=== PATIENT | female | born 1955 | race African-American/Black ===

== ENCOUNTER 2019-07-06 11:45 | Inpatient (IN) | payer MEDICAID ==
[~2019-07-06] VITALS: Ht 165.1 cm; Wt 71.2 kg
[~2019-07-06 11:45] MED LIST: ACET-3207 PO; AMLO10TA7 PO; ATOR20TA86 PO; BISA10SU11 PR; DSSL PO; INSULIN SQ; ONDA4VIA22 IV; PANT40VI14 IVP
[2019-07-06 12:37] VITALS: BP 163/95
[2019-07-06] MEDS ORDERED: ACETAMINOPHEN 325 MG TABLET PO PRN (14:00)
[2019-07-06] MEDS ORDERED: MELATONIN 3 MG TABLET PO PRN (14:00)
[2019-07-06] MEDS ORDERED: PNEUMOCOCCAL VACCINE POLYVALENT 0.5 ML VIAL [PPSV23] IM ONE (14:30)
[2019-07-06 14:47] LABS: BASOPHILS % (AUTO) 0.8 % (0.0-2.0); EOSINOPHILS % (AUTO) 1.4 % (1.0-6.0); HEMATOCRIT 34.9 % (36-46); HEMOGLOBIN 11.8 g/dL (12.0-16.0); LYMPHOCYTES # (AUTO) 1.6 K/uL (1.0-4.8); LYMPHOCYTES % (AUTO) 21.6 % (22.0-44.0); MEAN CORPUSCULAR HEMOGLOBIN 31.8 pg (26.0-34.0); MEAN CORPUSCULAR HGB CONC 33.9 G/dL (31.0-37.0); MEAN CORPUSCULAR VOLUME 94 fL (80-100); MONOCYTES # (AUTO) 0.8 K/uL (0.1-1.0); MONOCYTES % (AUTO) 10.8 % (2.0-9.0); NEUTROPHILS # (AUTO) 4.7 K/uL (1.8-7.7); NEUTROPHILS % (AUTO) 65.4 % (40.0-70.0); PLATELET COUNT (AUTO) 252 K/uL (150-450); RED BLOOD CELL COUNT(AUTO) 3.73 MIL/uL (4.00-5.20); RED CELL DISTRIBUTION WIDTH 13.7 % (11.5-14.5)
[2019-07-06 15:04] LABS: ALBUMIN 2.5 g/dL (3.4-5.0); BILIRUBIN,TOTAL 0.4 mg/dL (0.1-1.0); CALCIUM, TOTAL 8.8 mg/dL (8.8-10.5); CREATININE 1.12 mg/dL (0.60-1.30); POTASSIUM 3.9 mmol/L (3.5-5.1); TOTAL PROTEIN, SERUM 6.7 g/dL (6.4-8.2)
[2019-07-06] MEDS ORDERED: DEXTROSE 50%-WATER 25 GM/50 ML SYRINGE IVP PRN (15:30)
[2019-07-06 16:28] VITALS: BP 156/92
[2019-07-06] MEDS: DOCUSATE SODIUM 100 MG CAPSULE PO SCH ×2 (16:50→21:18)
[2019-07-06] MEDS: BISACODYL 10 MG RECTAL RECTAL SUPPOSITORY PR PRN (17:01)
[2019-07-06] MEDS ORDERED: SENNA 187 MG TABLET PO SCH (21:00)
[2019-07-06] MEDS ORDERED: DOCUSATE SODIUM 100 MG CAPSULE PO SCH (21:00)
[2019-07-06] MEDS: ATORVASTATIN CALCIUM 20 MG TABLET PO SCH (21:18)
[2019-07-06] MEDS: SENNA 187 MG TABLET PO SCH (21:18)
[2019-07-06] MEDS: INSULIN LISPRO 100 UNITS/ML SQ PRN (21:26)
[2019-07-06 22:37] LABS: GLUCOMETER DEV NAME(LOC) 2WR.2; GLUCOSE,POINT OF CARE 174 MG/DL (70-110)
[2019-07-06 23:27] VITALS: BP 153/90
[2019-07-07] VITALS (7 sets, daily range): BP systolic 158–188; BP diastolic 86–104
[2019-07-07 05:55] LABS: GLUCOMETER DEV NAME(LOC) 2WR.1C; GLUCOSE,POINT OF CARE 142 MG/DL (70-110)
[2019-07-07] MEDS ORDERED: PANTOPRAZOLE SODIUM 40 MG DR TABLET PO SCH (07:00)
[2019-07-07 07:30] LABS: APPEARANCE,URINE CLOUDY (CLEAR); BILIRUBIN,URINE NEGATIVE (NEGATIVE); GLUCOSE, URINE (UA) NEGATIVE (NEGATIVE); KETONES,URINE TRACE mg/dL (NEGATIVE); LEUKOCYTE ESTERASE ,URINE SMALL (NEGATIVE); NITRATE,URINE NEGATIVE (NEGATIVE); OCCULT BLOOD,URINE TRACE (NEGATIVE); PH,URINE 5.5 (5.0-8.0); PROTEIN,URINE SEE CONFIRM (NEGATIVE); UROBILINOGEN,URINE 0.2 mg/dL (<=1.0)
[2019-07-07] MEDS: INSULIN LISPRO 100 UNITS/ML SQ PRN ×4 (07:43→21:28)
[2019-07-07] MEDS: AmLODIPine BESYLATE 10 MG TABLET PO SCH (07:44)
[2019-07-07] MEDS: LANSOPRAZOLE 30 MG SOLUBLE TABLET PO SCH (07:44)
[2019-07-07] MEDS: DOCUSATE SODIUM 100 MG CAPSULE PO SCH ×2 (07:44→21:23)
[2019-07-07 07:45] LABS: BACTERIA,URINE Many /HPF (None Seen); RBC,URINE 0-2 /HPF (0-2); SULFOSALICYLIC ACID,URINE 3+ (Negative)
[2019-07-07] MEDS: NITROFURANTOIN/NITROFURAN MAC 100 MG CAPSULE [MACROBID] PO SCH ×2 (12:49→21:23)
[2019-07-07] MEDS: NYSTATIN 500,000 UNITS/5 ML SUSPENSION UDCUP PO SCH ×3 (12:49→21:23)
[2019-07-07 13:35] LABS: GLUCOMETER DEV NAME(LOC) 2WR.2; GLUCOSE,POINT OF CARE 188 MG/DL (70-110)
[2019-07-07 15:36] LABS: GLUCOMETER DEV NAME(LOC) 2WR.1C; GLUCOSE,POINT OF CARE 149 MG/DL (70-110)
[2019-07-07] MEDS: HydrALAZINE HCL 50 MG TABLET PO PRN ×2 (16:45→23:45)
[2019-07-07] MEDS: MetFORMIN HCL 500 MG TABLET PO SCH (16:46)
[2019-07-07 17:44] LABS: GLUCOMETER DEV NAME(LOC) 2WR.2; GLUCOSE,POINT OF CARE 152 MG/DL (70-110)
[2019-07-07] MEDS: BISACODYL 10 MG RECTAL RECTAL SUPPOSITORY PR PRN (18:27)
[2019-07-07] MEDS: ATORVASTATIN CALCIUM 20 MG TABLET PO SCH (21:23)
[2019-07-07] MEDS: SENNA 187 MG TABLET PO SCH (21:24)
[2019-07-07 22:54] LABS: GLUCOMETER DEV NAME(LOC) 2WR.2; GLUCOSE,POINT OF CARE 174 MG/DL (70-110)
[2019-07-08 01:24] VITALS: BP 157/88
[2019-07-08 06:17] LABS: GLUCOMETER DEV NAME(LOC) 2WR.2; GLUCOSE,POINT OF CARE 203 MG/DL (70-110)
[2019-07-08] MEDS: DOCUSATE SODIUM 100 MG CAPSULE PO SCH ×2 (07:18→21:08)
[2019-07-08] MEDS: AmLODIPine BESYLATE 10 MG TABLET PO SCH (07:18)
[2019-07-08] MEDS: MetFORMIN HCL 500 MG TABLET PO SCH ×2 (07:18→17:13)
[2019-07-08 07:20] VITALS: BP 183/97
[2019-07-08] MEDS: HydrALAZINE HCL 50 MG TABLET PO PRN (07:21)
[2019-07-08] MEDS: NITROFURANTOIN/NITROFURAN MAC 100 MG CAPSULE [MACROBID] PO SCH ×2 (07:21→21:07)
[2019-07-08] MEDS: NYSTATIN 500,000 UNITS/5 ML SUSPENSION UDCUP PO SCH ×4 (07:21→21:07)
[2019-07-08] MEDS: LANSOPRAZOLE 30 MG SOLUBLE TABLET PO SCH (07:22)
[2019-07-08] MEDS: INSULIN LISPRO 100 UNITS/ML SQ PRN ×4 (07:42→21:21)
[2019-07-08 08:30] VITALS: BP 184/95
[2019-07-08 09:20] VITALS: BP 156/90
[2019-07-08 15:00] VITALS: BP 158/93
[2019-07-08] MEDS: ACETAMINOPHEN 325 MG TABLET PO PRN (15:05)
[2019-07-08 15:22] LABS: GLUCOMETER DEV NAME(LOC) 2WR.2; GLUCOSE,POINT OF CARE 235 MG/DL (70-110)
[2019-07-08 17:40] LABS: GLUCOMETER DEV NAME(LOC) 2WR.2; GLUCOSE,POINT OF CARE 144 MG/DL (70-110)
[2019-07-08] MEDS: BISACODYL 10 MG RECTAL RECTAL SUPPOSITORY PR PRN (21:04)
[2019-07-08] MEDS: HydrALAZINE HCL 50 MG TABLET PO SCH (21:06)
[2019-07-08] MEDS: ATORVASTATIN CALCIUM 20 MG TABLET PO SCH (21:06)
[2019-07-08] MEDS: SENNA 187 MG TABLET PO SCH (21:06)
[2019-07-08 21:30] VITALS: BP 136/82
[2019-07-08 23:25] LABS: GLUCOMETER DEV NAME(LOC) 2WR.2; GLUCOSE,POINT OF CARE 143 MG/DL (70-110)
[2019-07-08 23:54] LABS: EOSINOPHILS % (AUTO) 2.4 % (1.0-6.0); HEMOGLOBIN 13.7 g/dL (12.0-16.0); LYMPHOCYTES # (AUTO) 1.4 K/uL (1.0-4.8); LYMPHOCYTES % (AUTO) 23.5 % (22.0-44.0); MEAN CORPUSCULAR HEMOGLOBIN 31.7 pg (26.0-34.0); MEAN CORPUSCULAR HGB CONC 34.1 G/dL (31.0-37.0); MEAN CORPUSCULAR VOLUME 93 fL (80-100); MONOCYTES # (AUTO) 1.1 K/uL (0.1-1.0); MONOCYTES % (AUTO) 18.2 % (2.0-9.0); NEUTROPHILS # (AUTO) 3.3 K/uL (1.8-7.7); NEUTROPHILS % (AUTO) 54.9 % (40.0-70.0); PLATELET COUNT (AUTO) 280 K/uL (150-450); RED BLOOD CELL COUNT(AUTO) 4.32 MIL/uL (4.00-5.20); RED CELL DISTRIBUTION WIDTH 13.6 % (11.5-14.5)
[2019-07-09] VITALS (9 sets, daily range): BP systolic 149–187; BP diastolic 80–125
[2019-07-09 00:01] LABS: CALCIUM, TOTAL 9.8 mg/dL (8.8-10.5); CREATININE 1.11 mg/dL (0.60-1.30); POTASSIUM 3.3 mmol/L (3.5-5.1)
[2019-07-09] MEDS: CloNIDine HCL 0.1 MG TABLET PO PRN ×2 (00:48→07:29)
[2019-07-09 05:45] LABS: GLUCOMETER DEV NAME(LOC) 2WR.1C; GLUCOSE,POINT OF CARE 162 MG/DL (70-110)
[2019-07-09 06:00] LABS: GLUCOMETER DEV NAME(LOC) 2WR.1C; GLUCOSE,POINT OF CARE 175 MG/DL (70-110)
[2019-07-09] MEDS: AmLODIPine BESYLATE 10 MG TABLET PO SCH (07:29)
[2019-07-09] MEDS: HydrALAZINE HCL 50 MG TABLET PO SCH ×3 (07:29→21:13)
[2019-07-09] MEDS: MetFORMIN HCL 500 MG TABLET PO SCH ×2 (07:29→18:02)
[2019-07-09] MEDS: DOCUSATE SODIUM 100 MG CAPSULE PO SCH ×2 (07:30→21:13)
[2019-07-09] MEDS: NYSTATIN 500,000 UNITS/5 ML SUSPENSION UDCUP PO SCH ×4 (07:30→21:13)
[2019-07-09] MEDS: NITROFURANTOIN/NITROFURAN MAC 100 MG CAPSULE [MACROBID] PO SCH (07:30)
[2019-07-09] MEDS: INSULIN LISPRO 100 UNITS/ML SQ PRN ×4 (07:39→21:18)
[2019-07-09] MEDS: LANSOPRAZOLE 30 MG SOLUBLE TABLET PO SCH (07:48)
[2019-07-09] MEDS: ACETAMINOPHEN 325 MG TABLET PO PRN (09:26)
[2019-07-09] MEDS ORDERED: POTASSIUM CHLORIDE 10% 40 MEQ/30 ML LIQUID UDCUP PO ONE (10:00)
[2019-07-09] MEDS: POTASSIUM CHLORIDE 20 MEQ ER TABLET PO SCH (12:48)
[2019-07-09 13:19] LABS: GLUCOMETER DEV NAME(LOC) 2WR.2; GLUCOSE,POINT OF CARE 227 MG/DL (70-110)
[2019-07-09] MEDS: AMPICILLIN TRIHYDRATE 500 MG CAPSULE PO SCH ×2 (15:38→21:13)
[2019-07-09] MEDS ORDERED: TAMSULOSIN HCL 0.4 MG CAPSULE PO SCH (21:00)
[2019-07-09 21:09] LABS: GLUCOMETER DEV NAME(LOC) 2WR.1C; GLUCOSE,POINT OF CARE 171 MG/DL (70-110)
[2019-07-09] MEDS: SENNA 187 MG TABLET PO SCH (21:14)
[2019-07-09] MEDS: ATORVASTATIN CALCIUM 20 MG TABLET PO SCH (21:14)
[2019-07-10 05:27] LABS: GLUCOMETER DEV NAME(LOC) 2WR.1C; GLUCOSE,POINT OF CARE 151 MG/DL (70-110)
[2019-07-10 05:42] LABS: GLUCOMETER DEV NAME(LOC) 2WR.2; GLUCOSE,POINT OF CARE 197 MG/DL (70-110)
[2019-07-10 07:19] VITALS: BP 156/95
[2019-07-10] MEDS: AmLODIPine BESYLATE 10 MG TABLET PO SCH (08:07)
[2019-07-10] MEDS: DOCUSATE SODIUM 100 MG CAPSULE PO SCH ×2 (08:07→21:05)
[2019-07-10] MEDS: MetFORMIN HCL 500 MG TABLET PO SCH ×2 (08:07→17:52)
[2019-07-10] MEDS: POTASSIUM CHLORIDE 20 MEQ ER TABLET PO SCH (08:07)
[2019-07-10] MEDS: HydrALAZINE HCL 50 MG TABLET PO SCH ×3 (08:08→21:05)
[2019-07-10] MEDS: NYSTATIN 500,000 UNITS/5 ML SUSPENSION UDCUP PO SCH ×4 (08:08→21:05)
[2019-07-10] MEDS: AMPICILLIN TRIHYDRATE 500 MG CAPSULE PO SCH ×3 (08:08→21:05)
[2019-07-10] MEDS: LANSOPRAZOLE 30 MG SOLUBLE TABLET PO SCH (08:09)
[2019-07-10] MEDS: ACETAMINOPHEN 325 MG TABLET PO PRN ×2 (08:35→13:45)
[2019-07-10] MEDS: INSULIN LISPRO 100 UNITS/ML SQ PRN ×4 (08:38→21:12)
[2019-07-10 10:20] VITALS: BP 149/93
[2019-07-10] MEDS: SERTRALINE HCL 50 MG TABLET PO SCH (13:40)
[2019-07-10 13:45] VITALS: BP 176/95
[2019-07-10] MEDS: CloNIDine HCL 0.1 MG TABLET PO PRN (13:45)
[2019-07-10 13:46] LABS: GLUCOMETER DEV NAME(LOC) 2WR.1C; GLUCOSE,POINT OF CARE 216 MG/DL (70-110)
[2019-07-10 15:00] VITALS: BP 157/98
[2019-07-10 18:18] LABS: GLUCOMETER DEV NAME(LOC) 2WR.2; GLUCOSE,POINT OF CARE 199 MG/DL (70-110)
[2019-07-10] MEDS: BISACODYL 10 MG RECTAL RECTAL SUPPOSITORY PR PRN (18:42)
[2019-07-10] MEDS: SENNA 187 MG TABLET PO SCH (21:05)
[2019-07-10] MEDS: ATORVASTATIN CALCIUM 20 MG TABLET PO SCH (21:05)
[2019-07-10] MEDS: TAMSULOSIN HCL 0.4 MG CAPSULE PO SCH (21:05)
[2019-07-10 21:15] VITALS: BP 152/91
[2019-07-10 21:37] LABS: GLUCOMETER DEV NAME(LOC) 2WR.1C; GLUCOSE,POINT OF CARE 194 MG/DL (70-110)
[2019-07-10 23:07] VITALS: BP 138/85
[2019-07-11 06:13] LABS: GLUCOMETER DEV NAME(LOC) 2WR.2; GLUCOSE,POINT OF CARE 198 MG/DL (70-110)
[2019-07-11 06:44] LABS: CALCIUM, TOTAL 9.3 mg/dL (8.8-10.5); CREATININE 1.26 mg/dL (0.60-1.30)
[2019-07-11 07:30] VITALS: BP 160/93
[2019-07-11] MEDS: MetFORMIN HCL 500 MG TABLET PO SCH ×2 (07:59→17:05)
[2019-07-11] MEDS: AmLODIPine BESYLATE 10 MG TABLET PO SCH (07:59)
[2019-07-11] MEDS: LANSOPRAZOLE 30 MG SOLUBLE TABLET PO SCH (07:59)
[2019-07-11] MEDS: AMPICILLIN TRIHYDRATE 500 MG CAPSULE PO SCH ×3 (07:59→20:58)
[2019-07-11] MEDS: NYSTATIN 500,000 UNITS/5 ML SUSPENSION UDCUP PO SCH ×4 (07:59→20:58)
[2019-07-11] MEDS: SERTRALINE HCL 50 MG TABLET PO SCH (07:59)
[2019-07-11] MEDS: DOCUSATE SODIUM 100 MG CAPSULE PO SCH (08:00)
[2019-07-11] MEDS: POTASSIUM CHLORIDE 20 MEQ ER TABLET PO SCH (08:00)
[2019-07-11] MEDS: HydrALAZINE HCL 50 MG TABLET PO SCH ×3 (08:00→20:58)
[2019-07-11] MEDS: INSULIN LISPRO 100 UNITS/ML SQ PRN ×4 (08:22→21:03)
[2019-07-11] MEDS ORDERED: POTASSIUM CHL 20 MEQ/0.9% NS 1,000 ML IV ONE ×2 (10:00)
[2019-07-11] MEDS: METOPROLOL TARTRATE 25 MG TABLET PO SCH ×2 (12:36→20:58)
[2019-07-11 12:59] LABS: GLUCOMETER DEV NAME(LOC) 2WR.2; GLUCOSE,POINT OF CARE 241 MG/DL (70-110)
[2019-07-11] MEDS: SODIUM CHLORIDE 0.9% 1,000 ML IV SCH (13:27)
[2019-07-11 15:30] VITALS: BP 147/78
[2019-07-11] MEDS: TAMSULOSIN HCL 0.4 MG CAPSULE PO SCH (20:58)
[2019-07-11] MEDS: DOCUSATE SODIUM 250 MG CAPSULE PO SCH (20:58)
[2019-07-11] MEDS: SENNA 187 MG TABLET PO SCH (20:59)
[2019-07-11] MEDS: ATORVASTATIN CALCIUM 20 MG TABLET PO SCH (20:59)
[2019-07-11] MEDS ORDERED: INSULIN GLARGINE,HUM.REC.ANLOG 100 UNITS/ML SQ SCH (21:00)
[2019-07-11 23:30] VITALS: BP 158/89
[2019-07-12] MEDS: SODIUM CHLORIDE 0.9% 1,000 ML IV SCH (01:16)
[2019-07-12 05:59] LABS: GLUCOMETER DEV NAME(LOC) 2WR.1C; GLUCOSE,POINT OF CARE 161 MG/DL (70-110)
[2019-07-12 05:59] LABS: GLUCOMETER DEV NAME(LOC) 2WR.1C; GLUCOSE,POINT OF CARE 160 MG/DL (70-110)
[2019-07-12 06:20] LABS: GLUCOMETER DEV NAME(LOC) 2WR.2; GLUCOSE,POINT OF CARE 184 MG/DL (70-110)
[2019-07-12] MEDS: INSULIN LISPRO 100 UNITS/ML SQ PRN ×3 (08:27→17:57)
[2019-07-12] MEDS: AMPICILLIN TRIHYDRATE 500 MG CAPSULE PO SCH ×3 (08:31→20:48)
[2019-07-12] MEDS: NYSTATIN 500,000 UNITS/5 ML SUSPENSION UDCUP PO SCH ×4 (08:32→20:47)
[2019-07-12] MEDS: HydrALAZINE HCL 50 MG TABLET PO SCH ×3 (08:32→20:47)
[2019-07-12] MEDS: POTASSIUM CHLORIDE 20 MEQ ER TABLET PO SCH (08:32)
[2019-07-12] MEDS: LANSOPRAZOLE 30 MG SOLUBLE TABLET PO SCH (08:32)
[2019-07-12] MEDS: METOPROLOL TARTRATE 25 MG TABLET PO SCH (08:32)
[2019-07-12] MEDS: SERTRALINE HCL 50 MG TABLET PO SCH (08:32)
[2019-07-12] MEDS: AmLODIPine BESYLATE 10 MG TABLET PO SCH (08:33)
[2019-07-12] MEDS: DOCUSATE SODIUM 250 MG CAPSULE PO SCH ×2 (08:33→20:47)
[2019-07-12] MEDS: MetFORMIN HCL 500 MG TABLET PO SCH ×2 (08:34→17:13)
[2019-07-12] MEDS: LIDOCAINE 5% TRANSDERMAL PATCH TD SCH (09:00)
[2019-07-12] MEDS: ACETAMINOPHEN 325 MG TABLET PO PRN (10:06)
[2019-07-12] MEDS: FLUCONAZOLE 100 MG TABLET PO SCH (13:16)
[2019-07-12] MEDS: BETHANECHOL CHLORIDE 25 MG TABLET PO SCH ×2 (13:16→20:48)
[2019-07-12 15:15] VITALS: BP 144/90
[2019-07-12 16:44] LABS: GLUCOMETER DEV NAME(LOC) 2WR.1C; GLUCOSE,POINT OF CARE 195 MG/DL (70-110)
[2019-07-12 17:49] LABS: GLUCOMETER DEV NAME(LOC) 2WR.2; GLUCOSE,POINT OF CARE 146 MG/DL (70-110)
[2019-07-12] MEDS: METOPROLOL TARTRATE 50 MG TABLET PO SCH (20:47)
[2019-07-12] MEDS: TAMSULOSIN HCL 0.4 MG CAPSULE PO SCH (20:47)
[2019-07-12] MEDS: SENNA 187 MG TABLET PO SCH (20:48)
[2019-07-12] MEDS: ATORVASTATIN CALCIUM 20 MG TABLET PO SCH (20:48)
[2019-07-12] MEDS: -LIDODERM PATCH NOTE- MISC SCH (21:00)
[2019-07-12] MEDS: INSULIN GLARGINE,HUM.REC.ANLOG 100 UNITS/ML SQ SCH (21:01)
[2019-07-12 21:42] LABS: GLUCOMETER DEV NAME(LOC) 2WR.1C; GLUCOSE,POINT OF CARE 121 MG/DL (70-110)
[2019-07-12 23:15] VITALS: BP 137/90
[2019-07-13] MEDS: DOCUSATE SODIUM 283 MG/5 ML MINI-ENEMA PR SCH (06:00)
[2019-07-13 06:28] LABS: GLUCOMETER DEV NAME(LOC) 2WR.2; GLUCOSE,POINT OF CARE 166 MG/DL (70-110)
[2019-07-13] MEDS: LIDOCAINE 5% TRANSDERMAL PATCH TD SCH (07:56)
[2019-07-13] MEDS: HydrALAZINE HCL 50 MG TABLET PO SCH ×3 (07:56→20:57)
[2019-07-13] MEDS: BETHANECHOL CHLORIDE 25 MG TABLET PO SCH ×2 (07:56→20:57)
[2019-07-13] MEDS: FLUCONAZOLE 100 MG TABLET PO SCH (07:56)
[2019-07-13] MEDS: LANSOPRAZOLE 30 MG SOLUBLE TABLET PO SCH (07:56)
[2019-07-13] MEDS: NYSTATIN 500,000 UNITS/5 ML SUSPENSION UDCUP PO SCH ×4 (07:56→20:58)
[2019-07-13] MEDS: POTASSIUM CHLORIDE 20 MEQ ER TABLET PO SCH (07:57)
[2019-07-13] MEDS: METOPROLOL TARTRATE 50 MG TABLET PO SCH ×2 (07:57→20:58)
[2019-07-13] MEDS: SERTRALINE HCL 50 MG TABLET PO SCH (07:57)
[2019-07-13] MEDS: AmLODIPine BESYLATE 10 MG TABLET PO SCH (07:57)
[2019-07-13] MEDS: MetFORMIN HCL 500 MG TABLET PO SCH ×2 (07:57→17:23)
[2019-07-13] MEDS: DOCUSATE SODIUM 250 MG CAPSULE PO SCH ×2 (07:57→20:58)
[2019-07-13] MEDS: AMPICILLIN TRIHYDRATE 500 MG CAPSULE PO SCH ×3 (07:58→20:58)
[2019-07-13] MEDS: INSULIN LISPRO 100 UNITS/ML SQ PRN ×2 (08:01→13:31)
[2019-07-13 09:37] VITALS: BP 159/97
[2019-07-13 13:18] LABS: GLUCOMETER DEV NAME(LOC) 2WR.2; GLUCOSE,POINT OF CARE 190 MG/DL (70-110)
[2019-07-13 16:00] VITALS: BP 145/92
[2019-07-13 16:43] VITALS: BP 148/88
[2019-07-13 20:56] VITALS: BP 135/73
[2019-07-13] MEDS: SENNA 187 MG TABLET PO SCH (20:57)
[2019-07-13] MEDS: TAMSULOSIN HCL 0.4 MG CAPSULE PO SCH (20:57)
[2019-07-13] MEDS: ATORVASTATIN CALCIUM 20 MG TABLET PO SCH (20:58)
[2019-07-13] MEDS: INSULIN GLARGINE,HUM.REC.ANLOG 100 UNITS/ML SQ SCH (21:01)
[2019-07-13] MEDS: -LIDODERM PATCH NOTE- MISC SCH (21:16)
[2019-07-13 21:30] LABS: GLUCOMETER DEV NAME(LOC) 2WR.1C; GLUCOSE,POINT OF CARE 154 MG/DL (70-110)
[2019-07-13 21:31] LABS: GLUCOMETER DEV NAME(LOC) 2WR.1C; GLUCOSE,POINT OF CARE 123 MG/DL (70-110)
[2019-07-14 01:32] VITALS: BP 133/73
[2019-07-14] MEDS: DOCUSATE SODIUM 283 MG/5 ML MINI-ENEMA PR SCH (05:53)
[2019-07-14 06:19] LABS: GLUCOMETER DEV NAME(LOC) 2WR.1C; GLUCOSE,POINT OF CARE 147 MG/DL (70-110)
[2019-07-14 07:30] VITALS: BP 142/76
[2019-07-14] MEDS: DOCUSATE SODIUM 250 MG CAPSULE PO SCH ×2 (08:14→21:37)
[2019-07-14] MEDS: POTASSIUM CHLORIDE 20 MEQ ER TABLET PO SCH (08:14)
[2019-07-14] MEDS: METOPROLOL TARTRATE 50 MG TABLET PO SCH ×2 (08:14→21:35)
[2019-07-14] MEDS: LIDOCAINE 5% TRANSDERMAL PATCH TD SCH (08:14)
[2019-07-14] MEDS: AMPICILLIN TRIHYDRATE 500 MG CAPSULE PO SCH ×3 (08:14→21:36)
[2019-07-14] MEDS: HydrALAZINE HCL 50 MG TABLET PO SCH ×3 (08:15→21:36)
[2019-07-14] MEDS: NYSTATIN 500,000 UNITS/5 ML SUSPENSION UDCUP PO SCH ×4 (08:15→21:36)
[2019-07-14] MEDS: SERTRALINE HCL 50 MG TABLET PO SCH (08:15)
[2019-07-14] MEDS: AmLODIPine BESYLATE 10 MG TABLET PO SCH (08:15)
[2019-07-14] MEDS: FLUCONAZOLE 100 MG TABLET PO SCH (08:15)
[2019-07-14] MEDS: BETHANECHOL CHLORIDE 25 MG TABLET PO SCH ×2 (08:15→21:36)
[2019-07-14] MEDS: MetFORMIN HCL 500 MG TABLET PO SCH ×2 (08:15→17:07)
[2019-07-14] MEDS: LANSOPRAZOLE 30 MG SOLUBLE TABLET PO SCH (08:15)
[2019-07-14] MEDS: INSULIN LISPRO 100 UNITS/ML SQ PRN ×2 (08:35→13:15)
[2019-07-14 12:47] LABS: GLUCOMETER DEV NAME(LOC) 2WR.2; GLUCOSE,POINT OF CARE 157 MG/DL (70-110)
[2019-07-14 15:00] VITALS: BP 144/76
[2019-07-14 21:00] VITALS: BP 144/73
[2019-07-14 21:34] LABS: GLUCOMETER DEV NAME(LOC) 2WR.1C; GLUCOSE,POINT OF CARE 125 MG/DL (70-110)
[2019-07-14] MEDS: -LIDODERM PATCH NOTE- MISC SCH (21:34)
[2019-07-14] MEDS: TAMSULOSIN HCL 0.4 MG CAPSULE PO SCH (21:36)
[2019-07-14] MEDS: SENNA 187 MG TABLET PO SCH (21:37)
[2019-07-14] MEDS: ATORVASTATIN CALCIUM 20 MG TABLET PO SCH (21:37)
[2019-07-14] MEDS: INSULIN GLARGINE,HUM.REC.ANLOG 100 UNITS/ML SQ SCH (21:39)
[2019-07-14 23:18] VITALS: BP 136/82
[2019-07-15] MEDS: DOCUSATE SODIUM 283 MG/5 ML MINI-ENEMA PR SCH (05:25)
[2019-07-15 05:43] LABS: GLUCOMETER DEV NAME(LOC) 2WR.1C; GLUCOSE,POINT OF CARE 123 MG/DL (70-110)
[2019-07-15 05:50] LABS: GLUCOMETER DEV NAME(LOC) 2WR.2; GLUCOSE,POINT OF CARE 146 MG/DL (70-110)
[2019-07-15 07:14] LABS: CALCIUM, TOTAL 9.2 mg/dL (8.8-10.5); CREATININE 1.32 mg/dL (0.60-1.30); POTASSIUM 3.9 mmol/L (3.5-5.1)
[2019-07-15 07:30] VITALS: BP 143/76
[2019-07-15] MEDS: DOCUSATE SODIUM 250 MG CAPSULE PO SCH ×2 (08:16→21:15)
[2019-07-15] MEDS: AmLODIPine BESYLATE 10 MG TABLET PO SCH (08:16)
[2019-07-15] MEDS: POTASSIUM CHLORIDE 20 MEQ ER TABLET PO SCH (08:16)
[2019-07-15] MEDS: SERTRALINE HCL 50 MG TABLET PO SCH (08:16)
[2019-07-15] MEDS: MetFORMIN HCL 500 MG TABLET PO SCH ×2 (08:16→17:17)
[2019-07-15] MEDS: METOPROLOL TARTRATE 50 MG TABLET PO SCH ×2 (08:16→21:15)
[2019-07-15] MEDS: NYSTATIN 500,000 UNITS/5 ML SUSPENSION UDCUP PO SCH ×4 (08:17→21:15)
[2019-07-15] MEDS: LIDOCAINE 5% TRANSDERMAL PATCH TD SCH (08:17)
[2019-07-15] MEDS: LANSOPRAZOLE 30 MG SOLUBLE TABLET PO SCH (08:17)
[2019-07-15] MEDS: AMPICILLIN TRIHYDRATE 500 MG CAPSULE PO SCH ×3 (08:17→21:15)
[2019-07-15] MEDS: BETHANECHOL CHLORIDE 25 MG TABLET PO SCH ×2 (08:17→21:15)
[2019-07-15] MEDS: HydrALAZINE HCL 50 MG TABLET PO SCH ×3 (08:18→21:15)
[2019-07-15] MEDS: FLUCONAZOLE 100 MG TABLET PO SCH (08:18)
[2019-07-15] MEDS: INSULIN LISPRO 100 UNITS/ML SQ PRN ×2 (08:24→21:24)
[2019-07-15 16:00] VITALS: BP 125/75
[2019-07-15 18:50] LABS: GLUCOMETER DEV NAME(LOC) 2WR.1C; GLUCOSE,POINT OF CARE 133 MG/DL (70-110)
[2019-07-15 18:50] LABS: GLUCOMETER DEV NAME(LOC) 2WR.1C; GLUCOSE,POINT OF CARE 140 MG/DL (70-110)
[2019-07-15] MEDS: ATORVASTATIN CALCIUM 20 MG TABLET PO SCH (21:15)
[2019-07-15] MEDS: SENNA 187 MG TABLET PO SCH (21:15)
[2019-07-15] MEDS: TAMSULOSIN HCL 0.4 MG CAPSULE PO SCH (21:15)
[2019-07-15] MEDS: -LIDODERM PATCH NOTE- MISC SCH (21:16)
[2019-07-15] MEDS: INSULIN GLARGINE,HUM.REC.ANLOG 100 UNITS/ML SQ SCH (21:19)
[2019-07-15 22:45] LABS: GLUCOMETER DEV NAME(LOC) 2WR.2; GLUCOSE,POINT OF CARE 167 MG/DL (70-110)
[2019-07-15 23:55] VITALS: BP 124/74
[2019-07-16] MEDS: DOCUSATE SODIUM 283 MG/5 ML MINI-ENEMA PR SCH (06:00)
[2019-07-16 06:12] LABS: GLUCOMETER DEV NAME(LOC) 2WR.2; GLUCOSE,POINT OF CARE 204 MG/DL (70-110)
[2019-07-16] MEDS: INSULIN LISPRO 100 UNITS/ML SQ PRN ×2 (08:21→12:37)
[2019-07-16 08:50] VITALS: BP 142/74
[2019-07-16] MEDS: LIDOCAINE 5% TRANSDERMAL PATCH TD SCH (08:55)
[2019-07-16] MEDS: AMPICILLIN TRIHYDRATE 500 MG CAPSULE PO SCH (08:57)
[2019-07-16] MEDS: NYSTATIN 500,000 UNITS/5 ML SUSPENSION UDCUP PO SCH ×4 (08:57→20:48)
[2019-07-16] MEDS: AmLODIPine BESYLATE 10 MG TABLET PO SCH (08:57)
[2019-07-16] MEDS: METOPROLOL TARTRATE 50 MG TABLET PO SCH ×2 (08:57→20:48)
[2019-07-16] MEDS: LANSOPRAZOLE 30 MG SOLUBLE TABLET PO SCH (08:57)
[2019-07-16] MEDS: SERTRALINE HCL 50 MG TABLET PO SCH (08:57)
[2019-07-16] MEDS: ACETAMINOPHEN 325 MG TABLET PO PRN ×2 (08:57→14:35)
[2019-07-16] MEDS: HydrALAZINE HCL 50 MG TABLET PO SCH ×3 (08:57→20:48)
[2019-07-16] MEDS: MetFORMIN HCL 500 MG TABLET PO SCH ×2 (08:57→16:12)
[2019-07-16] MEDS: BETHANECHOL CHLORIDE 25 MG TABLET PO SCH ×2 (08:58→20:48)
[2019-07-16] MEDS: DOCUSATE SODIUM 250 MG CAPSULE PO SCH ×3 (08:58→20:48)
[2019-07-16] MEDS: POTASSIUM CHLORIDE 20 MEQ ER TABLET PO SCH (08:58)
[2019-07-16] MEDS: MULTIVITAMINS WITH MINERALS, THERAPEUTIC 15 ML UDCUP NG SCH ×2 (08:59→09:00)
[2019-07-16] MEDS: ONDANSETRON HCL 4 MG TABLET PO PRN ×2 (10:01→14:35)
[2019-07-16 12:49] LABS: GLUCOMETER DEV NAME(LOC) 2WR.2; GLUCOSE,POINT OF CARE 150 MG/DL (70-110)
[2019-07-16 16:00] VITALS: BP 134/71
[2019-07-16 17:12] LABS: GLUCOMETER DEV NAME(LOC) 2WR.2; GLUCOSE,POINT OF CARE 84 MG/DL (70-110)
[2019-07-16] MEDS: TAMSULOSIN HCL 0.4 MG CAPSULE PO SCH (20:48)
[2019-07-16] MEDS: ATORVASTATIN CALCIUM 20 MG TABLET PO SCH (20:48)
[2019-07-16] MEDS: SENNA 187 MG TABLET PO SCH (20:49)
[2019-07-16] MEDS: -LIDODERM PATCH NOTE- MISC SCH (20:49)
[2019-07-16] MEDS: INSULIN GLARGINE,HUM.REC.ANLOG 100 UNITS/ML SQ SCH (20:56)
[2019-07-17 00:45] VITALS: BP 129/66
[2019-07-17 00:58] LABS: GLUCOMETER DEV NAME(LOC) 2WR.1C; GLUCOSE,POINT OF CARE 102 MG/DL (70-110)
[2019-07-17] MEDS: DOCUSATE SODIUM 283 MG/5 ML MINI-ENEMA PR SCH (06:00)
[2019-07-17 06:25] LABS: GLUCOMETER DEV NAME(LOC) 2WR.2; GLUCOSE,POINT OF CARE 196 MG/DL (70-110)
[2019-07-17] MEDS: NYSTATIN 500,000 UNITS/5 ML SUSPENSION UDCUP PO SCH ×4 (08:32→21:10)
[2019-07-17] MEDS: INSULIN LISPRO 100 UNITS/ML SQ PRN (08:35)
[2019-07-17] MEDS: LIDOCAINE 5% TRANSDERMAL PATCH TD SCH (08:36)
[2019-07-17] MEDS: MULTIVITAMINS WITH MINERALS, THERAPEUTIC 15 ML UDCUP NG SCH (08:36)
[2019-07-17] MEDS: METOPROLOL TARTRATE 50 MG TABLET PO SCH ×2 (08:36→21:10)
[2019-07-17] MEDS: LANSOPRAZOLE 30 MG SOLUBLE TABLET PO SCH (08:36)
[2019-07-17] MEDS: DOCUSATE SODIUM 250 MG CAPSULE PO SCH ×2 (08:37→21:00)
[2019-07-17] MEDS: AmLODIPine BESYLATE 10 MG TABLET PO SCH (08:37)
[2019-07-17] MEDS: HydrALAZINE HCL 50 MG TABLET PO SCH ×3 (08:37→21:10)
[2019-07-17] MEDS: MetFORMIN HCL 500 MG TABLET PO SCH ×2 (08:37→17:08)
[2019-07-17] MEDS: BETHANECHOL CHLORIDE 25 MG TABLET PO SCH ×2 (08:37→21:10)
[2019-07-17] MEDS: SERTRALINE HCL 50 MG TABLET PO SCH (08:37)
[2019-07-17] MEDS: POTASSIUM CHLORIDE 20 MEQ ER TABLET PO SCH (08:37)
[2019-07-17 08:40] VITALS: BP 144/75
[2019-07-17] MEDS: ACETAMINOPHEN 325 MG TABLET PO PRN (08:43)
[2019-07-17 15:00] VITALS: BP 128/71
[2019-07-17 17:33] LABS: GLUCOMETER DEV NAME(LOC) 2WR.1C; GLUCOSE,POINT OF CARE 166 MG/DL (70-110)
[2019-07-17 19:36] LABS: GLUCOMETER DEV NAME(LOC) 2WR.2; GLUCOSE,POINT OF CARE 135 MG/DL (70-110)
[2019-07-17 20:20] LABS: APPEARANCE,URINE CLOUDY (CLEAR); BILIRUBIN,URINE NEGATIVE (NEGATIVE); GLUCOSE, URINE (UA) NEGATIVE (NEGATIVE); KETONES,URINE NEGATIVE (NEGATIVE); LEUKOCYTE ESTERASE ,URINE TRACE (NEGATIVE); OCCULT BLOOD,URINE NEGATIVE (NEGATIVE); PROTEIN,URINE SEE CONFIRM (NEGATIVE); UROBILINOGEN,URINE 0.2 mg/dL (<=1.0)
[2019-07-17 20:33] LABS: BACTERIA,URINE Many /HPF (None Seen); NITRATE,URINE POSITIVE (NEGATIVE); RBC,URINE 0-2 /HPF (0-2); SQUAMOUS EPITHELIAL CELL,UR Few /LPF (None Seen); SULFOSALICYLIC ACID,URINE 2+ (Negative)
[2019-07-17] MEDS: SENNA 187 MG TABLET PO SCH (21:00)
[2019-07-17 21:06] VITALS: BP 115/62
[2019-07-17] MEDS: ATORVASTATIN CALCIUM 20 MG TABLET PO SCH (21:09)
[2019-07-17] MEDS: TAMSULOSIN HCL 0.4 MG CAPSULE PO SCH (21:10)
[2019-07-17] MEDS: INSULIN GLARGINE,HUM.REC.ANLOG 100 UNITS/ML SQ SCH (21:13)
[2019-07-17] MEDS: -LIDODERM PATCH NOTE- MISC SCH (21:15)
[2019-07-17 22:30] LABS: GLUCOMETER DEV NAME(LOC) 2WR.1C; GLUCOSE,POINT OF CARE 137 MG/DL (70-110)
[2019-07-18 00:30] VITALS: BP 134/72
[2019-07-18] MEDS: DOCUSATE SODIUM 283 MG/5 ML MINI-ENEMA PR SCH (06:00)
[2019-07-18 06:24] LABS: GLUCOMETER DEV NAME(LOC) 2WR.1C; GLUCOSE,POINT OF CARE 195 MG/DL (70-110)
[2019-07-18 07:42] VITALS: BP 121/54
[2019-07-18] MEDS: INSULIN LISPRO 100 UNITS/ML SQ PRN ×2 (08:05→21:08)
[2019-07-18] MEDS: HydrALAZINE HCL 50 MG TABLET PO SCH ×3 (08:49→21:05)
[2019-07-18] MEDS: MULTIVITAMINS WITH MINERALS, THERAPEUTIC 15 ML UDCUP NG SCH (08:49)
[2019-07-18] MEDS: NYSTATIN 500,000 UNITS/5 ML SUSPENSION UDCUP PO SCH ×4 (08:49→21:04)
[2019-07-18] MEDS: METOPROLOL TARTRATE 50 MG TABLET PO SCH ×2 (08:49→21:04)
[2019-07-18] MEDS: LIDOCAINE 5% TRANSDERMAL PATCH TD SCH (08:49)
[2019-07-18] MEDS: SERTRALINE HCL 50 MG TABLET PO SCH (08:49)
[2019-07-18] MEDS: LANSOPRAZOLE 30 MG SOLUBLE TABLET PO SCH (08:49)
[2019-07-18] MEDS: DOCUSATE SODIUM 250 MG CAPSULE PO SCH ×2 (08:50→21:05)
[2019-07-18] MEDS: AmLODIPine BESYLATE 10 MG TABLET PO SCH (08:50)
[2019-07-18] MEDS: MetFORMIN HCL 500 MG TABLET PO SCH ×2 (08:50→17:24)
[2019-07-18] MEDS: POTASSIUM CHLORIDE 20 MEQ ER TABLET PO SCH (08:50)
[2019-07-18] MEDS: BETHANECHOL CHLORIDE 25 MG TABLET PO SCH ×2 (08:51→21:04)
[2019-07-18 12:28] LABS: GLUCOMETER DEV NAME(LOC) 2WR.2; GLUCOSE,POINT OF CARE 176 MG/DL (70-110)
[2019-07-18 15:19] VITALS: BP 146/80
[2019-07-18] MEDS: CETYLPYRIDINIUM 120 ML MOUTHWASH PO PRN (15:21)
[2019-07-18 21:02] VITALS: BP 133/64
[2019-07-18] MEDS: SENNA 187 MG TABLET PO SCH (21:04)
[2019-07-18] MEDS: -LIDODERM PATCH NOTE- MISC SCH (21:05)
[2019-07-18] MEDS: TAMSULOSIN HCL 0.4 MG CAPSULE PO SCH (21:05)
[2019-07-18] MEDS: ATORVASTATIN CALCIUM 20 MG TABLET PO SCH (21:05)
[2019-07-18] MEDS: INSULIN GLARGINE,HUM.REC.ANLOG 100 UNITS/ML SQ SCH (21:07)
[2019-07-18 21:37] LABS: GLUCOMETER DEV NAME(LOC) 2WR.1C; GLUCOSE,POINT OF CARE 135 MG/DL (70-110)
[2019-07-18 21:37] LABS: GLUCOMETER DEV NAME(LOC) 2WR.2; GLUCOSE,POINT OF CARE 147 MG/DL (70-110)
[2019-07-19] VITALS: BP 153/80
[2019-07-19 06:48] LABS: BASOPHILS % (AUTO) 1.1 % (0.0-2.0); EOSINOPHILS % (AUTO) 1.8 % (1.0-6.0); HEMATOCRIT 31.7 % (36-46); HEMOGLOBIN 11.2 g/dL (12.0-16.0); LYMPHOCYTES # (AUTO) 1.8 K/uL (1.0-4.8); LYMPHOCYTES % (AUTO) 24.5 % (22.0-44.0); MEAN CORPUSCULAR HEMOGLOBIN 32.5 pg (26.0-34.0); MEAN CORPUSCULAR HGB CONC 35.3 G/dL (31.0-37.0); MEAN CORPUSCULAR VOLUME 92 fL (80-100); MONOCYTES # (AUTO) 0.5 K/uL (0.1-1.0); MONOCYTES % (AUTO) 7.3 % (2.0-9.0); NEUTROPHILS # (AUTO) 4.8 K/uL (1.8-7.7); NEUTROPHILS % (AUTO) 65.3 % (40.0-70.0); PLATELET COUNT (AUTO) 247 K/uL (150-450); RED BLOOD CELL COUNT(AUTO) 3.44 MIL/uL (4.00-5.20); RED CELL DISTRIBUTION WIDTH 13.1 % (11.5-14.5)
[2019-07-19] MEDS: DOCUSATE SODIUM 283 MG/5 ML MINI-ENEMA PR SCH (06:59)
[2019-07-19 07:14] LABS: CALCIUM, TOTAL 8.9 mg/dL (8.8-10.5); CREATININE 1.42 mg/dL (0.60-1.30); POTASSIUM 4.5 mmol/L (3.5-5.1)
[2019-07-19] MEDS: LANSOPRAZOLE 30 MG SOLUBLE TABLET PO SCH (08:14)
[2019-07-19] MEDS: LIDOCAINE 5% TRANSDERMAL PATCH TD SCH (08:14)
[2019-07-19] MEDS: NYSTATIN 500,000 UNITS/5 ML SUSPENSION UDCUP PO SCH ×4 (08:14→21:34)
[2019-07-19] MEDS: METOPROLOL TARTRATE 50 MG TABLET PO SCH ×2 (08:14→21:34)
[2019-07-19] MEDS: MULTIVITAMINS WITH MINERALS, THERAPEUTIC 15 ML UDCUP NG SCH (08:14)
[2019-07-19] MEDS: AmLODIPine BESYLATE 10 MG TABLET PO SCH (08:15)
[2019-07-19] MEDS: HydrALAZINE HCL 50 MG TABLET PO SCH ×3 (08:15→21:34)
[2019-07-19] MEDS: DOCUSATE SODIUM 250 MG CAPSULE PO SCH ×2 (08:15→21:34)
[2019-07-19] MEDS: POTASSIUM CHLORIDE 20 MEQ ER TABLET PO SCH (08:15)
[2019-07-19] MEDS: MetFORMIN HCL 500 MG TABLET PO SCH ×2 (08:15→17:22)
[2019-07-19] MEDS: ACETAMINOPHEN 325 MG TABLET PO PRN (08:15)
[2019-07-19] MEDS: BETHANECHOL CHLORIDE 25 MG TABLET PO SCH ×3 (08:15→21:34)
[2019-07-19] MEDS: SERTRALINE HCL 50 MG TABLET PO SCH (08:15)
[2019-07-19] MEDS: INSULIN LISPRO 100 UNITS/ML SQ PRN ×3 (08:17→21:37)
[2019-07-19 09:48] VITALS: BP 139/80
[2019-07-19] MEDS: CETYLPYRIDINIUM 120 ML MOUTHWASH PO PRN (13:05)
[2019-07-19 13:39] LABS: GLUCOMETER DEV NAME(LOC) 2WR.2; GLUCOSE,POINT OF CARE 169 MG/DL (70-110)
[2019-07-19 16:14] VITALS: BP 142/69
[2019-07-19 17:25] VITALS: BP 133/75
[2019-07-19 18:30] LABS: GLUCOMETER DEV NAME(LOC) 2WR.2; GLUCOSE,POINT OF CARE 108 MG/DL (70-110)
[2019-07-19 21:31] VITALS: BP 144/78
[2019-07-19] MEDS: -LIDODERM PATCH NOTE- MISC SCH (21:33)
[2019-07-19] MEDS: SENNA 187 MG TABLET PO SCH (21:34)
[2019-07-19] MEDS: TAMSULOSIN HCL 0.4 MG CAPSULE PO SCH (21:34)
[2019-07-19] MEDS: ATORVASTATIN CALCIUM 20 MG TABLET PO SCH (21:34)
[2019-07-19] MEDS: INSULIN GLARGINE,HUM.REC.ANLOG 100 UNITS/ML SQ SCH (21:35)
[2019-07-19 22:23] LABS: GLUCOMETER DEV NAME(LOC) 2WR.2; GLUCOSE,POINT OF CARE 157 MG/DL (70-110)
[2019-07-20 00:49] VITALS: BP 125/66
[2019-07-20 04:22] LABS: GLUCOMETER DEV NAME(LOC) 2WR.1C; GLUCOSE,POINT OF CARE 189 MG/DL (70-110)
[2019-07-20] MEDS: DOCUSATE SODIUM 283 MG/5 ML MINI-ENEMA PR SCH (05:29)
[2019-07-20 07:13] LABS: GLUCOMETER DEV NAME(LOC) 2WR.1C; GLUCOSE,POINT OF CARE 141 MG/DL (70-110)
[2019-07-20] MEDS: HydrALAZINE HCL 50 MG TABLET PO SCH ×3 (08:11→21:24)
[2019-07-20] MEDS: LIDOCAINE 5% TRANSDERMAL PATCH TD SCH (08:11)
[2019-07-20] MEDS: METOPROLOL TARTRATE 50 MG TABLET PO SCH ×2 (08:11→21:24)
[2019-07-20] MEDS: MULTIVITAMINS WITH MINERALS, THERAPEUTIC 15 ML UDCUP NG SCH (08:11)
[2019-07-20] MEDS: LANSOPRAZOLE 30 MG SOLUBLE TABLET PO SCH (08:12)
[2019-07-20] MEDS: SERTRALINE HCL 50 MG TABLET PO SCH (08:12)
[2019-07-20] MEDS: AmLODIPine BESYLATE 10 MG TABLET PO SCH (08:12)
[2019-07-20] MEDS: BETHANECHOL CHLORIDE 25 MG TABLET PO SCH ×3 (08:12→21:24)
[2019-07-20] MEDS: DOCUSATE SODIUM 250 MG CAPSULE PO SCH ×2 (08:12→21:24)
[2019-07-20] MEDS: NYSTATIN 500,000 UNITS/5 ML SUSPENSION UDCUP PO SCH ×4 (08:12→21:24)
[2019-07-20] MEDS: MetFORMIN HCL 500 MG TABLET PO SCH (08:12)
[2019-07-20] MEDS: POTASSIUM CHLORIDE 20 MEQ ER TABLET PO SCH (08:12)
[2019-07-20 08:15] VITALS: BP 148/75
[2019-07-20] MEDS: INSULIN LISPRO 100 UNITS/ML SQ PRN (13:06)
[2019-07-20 14:15] VITALS: BP 128/78
[2019-07-20 15:00] VITALS: BP 153/65
[2019-07-20] MEDS: DRONABINOL 2.5 MG CAPSULE PO SCH (15:57)
[2019-07-20 17:53] LABS: GLUCOMETER DEV NAME(LOC) 2WR.1C; GLUCOSE,POINT OF CARE 197 MG/DL (70-110)
[2019-07-20 17:54] LABS: GLUCOMETER DEV NAME(LOC) 2WR.1C; GLUCOSE,POINT OF CARE 102 MG/DL (70-110)
[2019-07-20] MEDS: -LIDODERM PATCH NOTE- MISC SCH (21:24)
[2019-07-20] MEDS: TAMSULOSIN HCL 0.4 MG CAPSULE PO SCH (21:24)
[2019-07-20] MEDS: ATORVASTATIN CALCIUM 20 MG TABLET PO SCH (21:24)
[2019-07-20] MEDS: SENNA 187 MG TABLET PO SCH (21:24)
[2019-07-20] MEDS: INSULIN GLARGINE,HUM.REC.ANLOG 100 UNITS/ML SQ SCH (21:26)
[2019-07-20 21:47] VITALS: BP 144/83
[2019-07-20 21:58] LABS: GLUCOMETER DEV NAME(LOC) 2WR.1C; GLUCOSE,POINT OF CARE 123 MG/DL (70-110)
[2019-07-21 02:00] VITALS: BP 152/81
[2019-07-21] MEDS: DRONABINOL 2.5 MG CAPSULE PO SCH ×2 (05:55→17:08)
[2019-07-21] MEDS: DOCUSATE SODIUM 283 MG/5 ML MINI-ENEMA PR SCH (05:55)
[2019-07-21 06:42] LABS: GLUCOMETER DEV NAME(LOC) 2WR.1C; GLUCOSE,POINT OF CARE 158 MG/DL (70-110)
[2019-07-21 07:35] VITALS: BP 138/85
[2019-07-21] MEDS: LIDOCAINE 5% TRANSDERMAL PATCH TD SCH (08:25)
[2019-07-21] MEDS: HydrALAZINE HCL 50 MG TABLET PO SCH ×3 (08:26→22:04)
[2019-07-21] MEDS: LANSOPRAZOLE 30 MG SOLUBLE TABLET PO SCH (08:26)
[2019-07-21] MEDS: MULTIVITAMINS WITH MINERALS, THERAPEUTIC 15 ML UDCUP NG SCH (08:26)
[2019-07-21] MEDS: METOPROLOL TARTRATE 50 MG TABLET PO SCH ×2 (08:26→22:04)
[2019-07-21] MEDS: NYSTATIN 500,000 UNITS/5 ML SUSPENSION UDCUP PO SCH ×4 (08:26→22:04)
[2019-07-21] MEDS: AmLODIPine BESYLATE 10 MG TABLET PO SCH (08:27)
[2019-07-21] MEDS: BETHANECHOL CHLORIDE 25 MG TABLET PO SCH ×3 (08:27→22:04)
[2019-07-21] MEDS: SERTRALINE HCL 50 MG TABLET PO SCH (08:27)
[2019-07-21] MEDS: POTASSIUM CHLORIDE 20 MEQ ER TABLET PO SCH (08:27)
[2019-07-21] MEDS: DOCUSATE SODIUM 250 MG CAPSULE PO SCH ×2 (08:27→22:04)
[2019-07-21] MEDS: INSULIN LISPRO 100 UNITS/ML SQ PRN ×4 (08:28→22:07)
[2019-07-21 11:15] VITALS: BP 148/75
[2019-07-21 12:28] LABS: GLUCOMETER DEV NAME(LOC) 2WR.2; GLUCOSE,POINT OF CARE 189 MG/DL (70-110)
[2019-07-21 15:30] VITALS: BP 149/87
[2019-07-21 16:58] LABS: GLUCOMETER DEV NAME(LOC) 2WR.1C; GLUCOSE,POINT OF CARE 157 MG/DL (70-110)
[2019-07-21 22:03] VITALS: BP 133/76
[2019-07-21] MEDS: SENNA 187 MG TABLET PO SCH (22:04)
[2019-07-21] MEDS: ATORVASTATIN CALCIUM 20 MG TABLET PO SCH (22:04)
[2019-07-21] MEDS: TAMSULOSIN HCL 0.4 MG CAPSULE PO SCH (22:04)
[2019-07-21] MEDS: INSULIN GLARGINE,HUM.REC.ANLOG 100 UNITS/ML SQ SCH (22:06)
[2019-07-21] MEDS: -LIDODERM PATCH NOTE- MISC SCH (22:32)
[2019-07-21 22:51] LABS: GLUCOMETER DEV NAME(LOC) 2WR.2; GLUCOSE,POINT OF CARE 186 MG/DL (70-110)
[2019-07-22] VITALS (7 sets, daily range): BP systolic 129–145; BP diastolic 64–77
[2019-07-22] MEDS: DOCUSATE SODIUM 283 MG/5 ML MINI-ENEMA PR SCH (05:10)
[2019-07-22] MEDS: DRONABINOL 2.5 MG CAPSULE PO SCH ×2 (05:40→16:34)
[2019-07-22 05:45] LABS: GLUCOMETER DEV NAME(LOC) 2WR.1C; GLUCOSE,POINT OF CARE 162 MG/DL (70-110)
[2019-07-22] MEDS: INSULIN LISPRO 100 UNITS/ML SQ PRN ×3 (08:26→21:39)
[2019-07-22] MEDS: NYSTATIN 500,000 UNITS/5 ML SUSPENSION UDCUP PO SCH ×4 (09:18→21:31)
[2019-07-22] MEDS: AmLODIPine BESYLATE 10 MG TABLET PO SCH (09:19)
[2019-07-22] MEDS: HydrALAZINE HCL 50 MG TABLET PO SCH ×3 (09:19→21:31)
[2019-07-22] MEDS: MULTIVITAMINS WITH MINERALS, THERAPEUTIC 15 ML UDCUP NG SCH ×2 (09:19→10:24)
[2019-07-22] MEDS: BETHANECHOL CHLORIDE 25 MG TABLET PO SCH ×3 (09:19→21:31)
[2019-07-22] MEDS: POTASSIUM CHLORIDE 20 MEQ ER TABLET PO SCH (09:19)
[2019-07-22] MEDS: SERTRALINE HCL 50 MG TABLET PO SCH (09:19)
[2019-07-22] MEDS: LANSOPRAZOLE 30 MG SOLUBLE TABLET PO SCH (09:19)
[2019-07-22] MEDS: LIDOCAINE 5% TRANSDERMAL PATCH TD SCH (09:19)
[2019-07-22] MEDS: METOPROLOL TARTRATE 50 MG TABLET PO SCH ×2 (09:19→21:31)
[2019-07-22] MEDS: DOCUSATE SODIUM 250 MG CAPSULE PO SCH ×2 (09:29→21:31)
[2019-07-22 17:31] LABS: GLUCOMETER DEV NAME(LOC) 2WR.1C; GLUCOSE,POINT OF CARE 162 MG/DL (70-110)
[2019-07-22 18:22] LABS: GLUCOMETER DEV NAME(LOC) 2WR.2; GLUCOSE,POINT OF CARE 135 MG/DL (70-110)
[2019-07-22] MEDS: SENNA 187 MG TABLET PO SCH (21:31)
[2019-07-22] MEDS: -LIDODERM PATCH NOTE- MISC SCH (21:31)
[2019-07-22] MEDS: ATORVASTATIN CALCIUM 20 MG TABLET PO SCH (21:31)
[2019-07-22] MEDS: TAMSULOSIN HCL 0.4 MG CAPSULE PO SCH (21:31)
[2019-07-22] MEDS: INSULIN GLARGINE,HUM.REC.ANLOG 100 UNITS/ML SQ SCH (21:38)
[2019-07-22 21:51] LABS: GLUCOMETER DEV NAME(LOC) 2WR.2; GLUCOSE,POINT OF CARE 219 MG/DL (70-110)
[2019-07-23 01:26] VITALS: BP 129/64
[2019-07-23] MEDS: DOCUSATE SODIUM 283 MG/5 ML MINI-ENEMA PR SCH (05:17)
[2019-07-23] MEDS: DRONABINOL 2.5 MG CAPSULE PO SCH ×2 (05:18→16:44)
[2019-07-23 05:50] LABS: GLUCOMETER DEV NAME(LOC) 2WR.1C; GLUCOSE,POINT OF CARE 134 MG/DL (70-110)
[2019-07-23 08:46] VITALS: BP 150/79
[2019-07-23] MEDS: NYSTATIN 500,000 UNITS/5 ML SUSPENSION UDCUP PO SCH ×4 (09:11→21:14)
[2019-07-23] MEDS: LIDOCAINE 5% TRANSDERMAL PATCH TD SCH (09:11)
[2019-07-23] MEDS: LANSOPRAZOLE 30 MG SOLUBLE TABLET PO SCH (09:12)
[2019-07-23] MEDS: HydrALAZINE HCL 50 MG TABLET PO SCH ×3 (09:12→21:14)
[2019-07-23] MEDS: DOCUSATE SODIUM 250 MG CAPSULE PO SCH ×2 (09:12→21:15)
[2019-07-23] MEDS: MULTIVITAMINS WITH MINERALS, THERAPEUTIC TABLET PO SCH (09:12)
[2019-07-23] MEDS: BETHANECHOL CHLORIDE 25 MG TABLET PO SCH ×3 (09:12→21:14)
[2019-07-23] MEDS: AmLODIPine BESYLATE 10 MG TABLET PO SCH (09:12)
[2019-07-23] MEDS: METOPROLOL TARTRATE 50 MG TABLET PO SCH ×2 (09:12→21:15)
[2019-07-23] MEDS: POTASSIUM CHLORIDE 20 MEQ ER TABLET PO SCH (09:13)
[2019-07-23] MEDS: SERTRALINE HCL 50 MG TABLET PO SCH (09:13)
[2019-07-23] MEDS: INSULIN LISPRO 100 UNITS/ML SQ PRN ×3 (12:48→21:19)
[2019-07-23 16:00] VITALS: BP 145/83
[2019-07-23 18:57] LABS: GLUCOMETER DEV NAME(LOC) 2WR.1C; GLUCOSE,POINT OF CARE 175 MG/DL (70-110)
[2019-07-23 20:45] LABS: GLUCOMETER DEV NAME(LOC) 2WR.2; GLUCOSE,POINT OF CARE 169 MG/DL (70-110)
[2019-07-23 21:13] VITALS: BP 118/60
[2019-07-23] MEDS: ATORVASTATIN CALCIUM 20 MG TABLET PO SCH (21:15)
[2019-07-23] MEDS: SENNA 187 MG TABLET PO SCH (21:15)
[2019-07-23] MEDS: TAMSULOSIN HCL 0.4 MG CAPSULE PO SCH (21:15)
[2019-07-23] MEDS: INSULIN GLARGINE,HUM.REC.ANLOG 100 UNITS/ML SQ SCH (21:16)
[2019-07-23] MEDS: -LIDODERM PATCH NOTE- MISC SCH (21:39)
[2019-07-23 22:17] LABS: GLUCOMETER DEV NAME(LOC) 2WR.1C; GLUCOSE,POINT OF CARE 212 MG/DL (70-110)
[2019-07-23 23:37] VITALS: BP 133/71
[2019-07-24] MEDS: DOCUSATE SODIUM 283 MG/5 ML MINI-ENEMA PR SCH (05:22)
[2019-07-24] MEDS: DRONABINOL 2.5 MG CAPSULE PO SCH ×2 (05:32→16:22)
[2019-07-24 05:48] LABS: GLUCOMETER DEV NAME(LOC) 2WR.1C; GLUCOSE,POINT OF CARE 236 MG/DL (70-110)
[2019-07-24] MEDS: METOPROLOL TARTRATE 50 MG TABLET PO SCH ×2 (07:20→20:06)
[2019-07-24] MEDS: BETHANECHOL CHLORIDE 25 MG TABLET PO SCH ×3 (07:20→20:06)
[2019-07-24] MEDS: HydrALAZINE HCL 50 MG TABLET PO SCH ×3 (07:20→20:05)
[2019-07-24] MEDS: AmLODIPine BESYLATE 10 MG TABLET PO SCH (07:20)
[2019-07-24] MEDS: DOCUSATE SODIUM 250 MG CAPSULE PO SCH ×2 (07:20→20:05)
[2019-07-24] MEDS: LANSOPRAZOLE 30 MG SOLUBLE TABLET PO SCH (07:20)
[2019-07-24] MEDS: POTASSIUM CHLORIDE 20 MEQ ER TABLET PO SCH (07:20)
[2019-07-24] MEDS: SERTRALINE HCL 50 MG TABLET PO SCH (07:20)
[2019-07-24] MEDS: MULTIVITAMINS WITH MINERALS, THERAPEUTIC TABLET PO SCH (07:20)
[2019-07-24] MEDS: LIDOCAINE 5% TRANSDERMAL PATCH TD SCH (07:21)
[2019-07-24] MEDS: NYSTATIN 500,000 UNITS/5 ML SUSPENSION UDCUP PO SCH ×4 (07:21→20:06)
[2019-07-24] MEDS: INSULIN LISPRO 100 UNITS/ML SQ PRN ×2 (08:00→13:25)
[2019-07-24 09:14] VITALS: BP 143/80
[2019-07-24] MEDS: SULFAMETHOX/TRIMETH DS 800-160 MG/TABLET PO SCH ×2 (13:29→20:06)
[2019-07-24 15:33] VITALS: BP 143/76
[2019-07-24 17:53] LABS: GLUCOMETER DEV NAME(LOC) 2WR.2; GLUCOSE,POINT OF CARE 129 MG/DL (70-110)
[2019-07-24 20:00] VITALS: BP 124/77
[2019-07-24] MEDS: SENNA 187 MG TABLET PO SCH (20:04)
[2019-07-24] MEDS: TAMSULOSIN HCL 0.4 MG CAPSULE PO SCH (20:05)
[2019-07-24] MEDS: ATORVASTATIN CALCIUM 20 MG TABLET PO SCH (20:06)
[2019-07-24] MEDS ORDERED: INSULIN GLARGINE,HUM.REC.ANLOG 100 UNITS/ML SQ SCH (21:00)
[2019-07-24] MEDS: -LIDODERM PATCH NOTE- MISC SCH (21:23)
[2019-07-24 22:17] LABS: GLUCOMETER DEV NAME(LOC) 2WR.1C; GLUCOSE,POINT OF CARE 251 MG/DL (70-110)
[2019-07-24 22:17] LABS: GLUCOMETER DEV NAME(LOC) 2WR.1C; GLUCOSE,POINT OF CARE 186 MG/DL (70-110)
[2019-07-25 00:45] VITALS: BP 141/76
[2019-07-25] MEDS: DOCUSATE SODIUM 283 MG/5 ML MINI-ENEMA PR SCH (05:25)
[2019-07-25] MEDS: DRONABINOL 2.5 MG CAPSULE PO SCH (05:25)
[2019-07-25 06:24] LABS: GLUCOMETER DEV NAME(LOC) 2WR.1C; GLUCOSE,POINT OF CARE 169 MG/DL (70-110)
[2019-07-25 07:30] VITALS: BP 138/74
[2019-07-25] MEDS: LIDOCAINE 5% TRANSDERMAL PATCH TD SCH (07:51)
[2019-07-25] MEDS: DOCUSATE SODIUM 250 MG CAPSULE PO SCH ×2 (07:51→21:26)
[2019-07-25] MEDS: MULTIVITAMINS WITH MINERALS, THERAPEUTIC TABLET PO SCH (07:52)
[2019-07-25] MEDS: SERTRALINE HCL 50 MG TABLET PO SCH (07:52)
[2019-07-25] MEDS: AmLODIPine BESYLATE 10 MG TABLET PO SCH (07:52)
[2019-07-25] MEDS: NYSTATIN 500,000 UNITS/5 ML SUSPENSION UDCUP PO SCH ×4 (07:52→21:26)
[2019-07-25] MEDS: POTASSIUM CHLORIDE 20 MEQ ER TABLET PO SCH (07:52)
[2019-07-25] MEDS: SULFAMETHOX/TRIMETH DS 800-160 MG/TABLET PO SCH ×2 (07:52→21:26)
[2019-07-25] MEDS: BETHANECHOL CHLORIDE 25 MG TABLET PO SCH ×3 (07:52→21:26)
[2019-07-25] MEDS: LANSOPRAZOLE 30 MG SOLUBLE TABLET PO SCH (07:53)
[2019-07-25] MEDS: HydrALAZINE HCL 50 MG TABLET PO SCH ×3 (07:53→21:26)
[2019-07-25] MEDS: METOPROLOL TARTRATE 50 MG TABLET PO SCH ×2 (07:53→21:26)
[2019-07-25] MEDS: INSULIN LISPRO 100 UNITS/ML SQ PRN ×3 (07:54→17:42)
[2019-07-25 12:19] LABS: GLUCOMETER DEV NAME(LOC) 2WR.2; GLUCOSE,POINT OF CARE 200 MG/DL (70-110)
[2019-07-25 17:31] VITALS: BP 136/76
[2019-07-25 18:06] LABS: GLUCOMETER DEV NAME(LOC) 2WR.2; GLUCOSE,POINT OF CARE 152 MG/DL (70-110)
[2019-07-25] MEDS: SENNA 187 MG TABLET PO SCH (21:26)
[2019-07-25] MEDS: -LIDODERM PATCH NOTE- MISC SCH (21:26)
[2019-07-25] MEDS: TAMSULOSIN HCL 0.4 MG CAPSULE PO SCH (21:26)
[2019-07-25] MEDS: ATORVASTATIN CALCIUM 20 MG TABLET PO SCH (21:26)
[2019-07-25] MEDS: INSULIN GLARGINE,HUM.REC.ANLOG 100 UNITS/ML SQ SCH (21:28)
[2019-07-25 21:41] LABS: GLUCOMETER DEV NAME(LOC) 2WR.2; GLUCOSE,POINT OF CARE 138 MG/DL (70-110)
[2019-07-26 00:27] VITALS: BP 140/70
[2019-07-26] MEDS: DOCUSATE SODIUM 283 MG/5 ML MINI-ENEMA PR SCH (05:20)
[2019-07-26 05:45] LABS: GLUCOMETER DEV NAME(LOC) 2WR.2; GLUCOSE,POINT OF CARE 140 MG/DL (70-110)
[2019-07-26 08:00] VITALS: BP 147/78
[2019-07-26] MEDS: METOPROLOL TARTRATE 50 MG TABLET PO SCH ×2 (08:04→21:20)
[2019-07-26] MEDS: AmLODIPine BESYLATE 10 MG TABLET PO SCH (08:04)
[2019-07-26] MEDS: BETHANECHOL CHLORIDE 25 MG TABLET PO SCH ×3 (08:04→21:20)
[2019-07-26] MEDS: SERTRALINE HCL 50 MG TABLET PO SCH (08:04)
[2019-07-26] MEDS: HydrALAZINE HCL 50 MG TABLET PO SCH ×3 (08:04→21:19)
[2019-07-26] MEDS: LANSOPRAZOLE 30 MG SOLUBLE TABLET PO SCH (08:04)
[2019-07-26] MEDS: SULFAMETHOX/TRIMETH DS 800-160 MG/TABLET PO SCH ×2 (08:05→21:20)
[2019-07-26] MEDS: MULTIVITAMINS WITH MINERALS, THERAPEUTIC TABLET PO SCH (08:05)
[2019-07-26] MEDS: DOCUSATE SODIUM 250 MG CAPSULE PO SCH ×2 (08:05→21:20)
[2019-07-26] MEDS: NYSTATIN 500,000 UNITS/5 ML SUSPENSION UDCUP PO SCH (08:05)
[2019-07-26] MEDS: POTASSIUM CHLORIDE 20 MEQ ER TABLET PO SCH (08:05)
[2019-07-26] MEDS: LIDOCAINE 5% TRANSDERMAL PATCH TD SCH (08:05)
[2019-07-26 11:48] LABS: CALCIUM, TOTAL 8.9 mg/dL (8.8-10.5); CREATININE 1.52 mg/dL (0.60-1.30)
[2019-07-26 12:22] LABS: GLUCOMETER DEV NAME(LOC) 2WR.2; GLUCOSE,POINT OF CARE 198 MG/DL (70-110)
[2019-07-26] MEDS: INSULIN LISPRO 100 UNITS/ML SQ PRN ×2 (12:59→18:01)
[2019-07-26 15:10] VITALS: BP 137/90
[2019-07-26 18:36] LABS: GLUCOMETER DEV NAME(LOC) 2WR.1C; GLUCOSE,POINT OF CARE 146 MG/DL (70-110)
[2019-07-26 21:18] VITALS: BP 144/72
[2019-07-26] MEDS: SENNA 187 MG TABLET PO SCH (21:20)
[2019-07-26] MEDS: TAMSULOSIN HCL 0.4 MG CAPSULE PO SCH (21:20)
[2019-07-26] MEDS: ATORVASTATIN CALCIUM 20 MG TABLET PO SCH (21:20)
[2019-07-26] MEDS: INSULIN GLARGINE,HUM.REC.ANLOG 100 UNITS/ML SQ SCH (21:21)
[2019-07-26] MEDS: -LIDODERM PATCH NOTE- MISC SCH (21:32)
[2019-07-26 21:49] LABS: GLUCOMETER DEV NAME(LOC) 2WR.2; GLUCOSE,POINT OF CARE 123 MG/DL (70-110)
[2019-07-27] VITALS: BP 139/69
[2019-07-27] MEDS: DOCUSATE SODIUM 283 MG/5 ML MINI-ENEMA PR SCH (05:57)
[2019-07-27 06:03] LABS: GLUCOMETER DEV NAME(LOC) 2WR.2; GLUCOSE,POINT OF CARE 112 MG/DL (70-110)
[2019-07-27 06:26] LABS: BASOPHILS % (AUTO) 0.6 % (0.0-2.0); EOSINOPHILS % (AUTO) 2.8 % (1.0-6.0); HEMATOCRIT 32.7 % (36-46); HEMOGLOBIN 11.3 g/dL (12.0-16.0); LYMPHOCYTES # (AUTO) 1.3 K/uL (1.0-4.8); LYMPHOCYTES % (AUTO) 21.9 % (22.0-44.0); MEAN CORPUSCULAR HGB CONC 34.7 G/dL (31.0-37.0); MEAN CORPUSCULAR VOLUME 92 fL (80-100); MONOCYTES # (AUTO) 0.6 K/uL (0.1-1.0); MONOCYTES % (AUTO) 9.7 % (2.0-9.0); NEUTROPHILS # (AUTO) 3.9 K/uL (1.8-7.7); PLATELET COUNT (AUTO) 303 K/uL (150-450); RED BLOOD CELL COUNT(AUTO) 3.54 MIL/uL (4.00-5.20); RED CELL DISTRIBUTION WIDTH 13.1 % (11.5-14.5)
[2019-07-27 06:51] LABS: ALBUMIN 2.8 g/dL (3.4-5.0); BILIRUBIN,TOTAL 0.2 mg/dL (0.1-1.0); CALCIUM, TOTAL 9.2 mg/dL (8.8-10.5); CREATININE 1.4 mg/dL (0.60-1.30); POTASSIUM 4.6 mmol/L (3.5-5.1)
[2019-07-27 08:00] VITALS: BP 150/90
[2019-07-27] MEDS: LIDOCAINE 5% TRANSDERMAL PATCH TD SCH (09:20)
[2019-07-27] MEDS: HydrALAZINE HCL 50 MG TABLET PO SCH ×3 (09:21→20:00)
[2019-07-27] MEDS: BETHANECHOL CHLORIDE 25 MG TABLET PO SCH ×3 (09:21→20:00)
[2019-07-27] MEDS: POTASSIUM CHLORIDE 20 MEQ ER TABLET PO SCH (09:21)
[2019-07-27] MEDS: MULTIVITAMINS WITH MINERALS, THERAPEUTIC TABLET PO SCH (09:21)
[2019-07-27] MEDS: DOCUSATE SODIUM 250 MG CAPSULE PO SCH ×2 (09:22→20:00)
[2019-07-27] MEDS: SERTRALINE HCL 50 MG TABLET PO SCH (09:22)
[2019-07-27] MEDS: SULFAMETHOX/TRIMETH DS 800-160 MG/TABLET PO SCH ×2 (09:22→20:01)
[2019-07-27] MEDS: METOPROLOL TARTRATE 50 MG TABLET PO SCH ×2 (09:22→20:00)
[2019-07-27] MEDS: LANSOPRAZOLE 30 MG SOLUBLE TABLET PO SCH (09:22)
[2019-07-27] MEDS: AmLODIPine BESYLATE 10 MG TABLET PO SCH (09:22)
[2019-07-27] MEDS: INSULIN LISPRO 100 UNITS/ML SQ PRN ×2 (13:33→20:07)
[2019-07-27 13:38] LABS: GLUCOMETER DEV NAME(LOC) 2WR.1C; GLUCOSE,POINT OF CARE 181 MG/DL (70-110)
[2019-07-27 15:15] VITALS: BP 144/77
[2019-07-27 16:49] LABS: GLUCOMETER DEV NAME(LOC) 2WR.2; GLUCOSE,POINT OF CARE 89 MG/DL (70-110)
[2019-07-27 19:50] VITALS: BP 122/66
[2019-07-27] MEDS: -LIDODERM PATCH NOTE- MISC SCH (19:58)
[2019-07-27] MEDS: SENNA 187 MG TABLET PO SCH (20:00)
[2019-07-27] MEDS: ATORVASTATIN CALCIUM 20 MG TABLET PO SCH (20:00)
[2019-07-27] MEDS: TAMSULOSIN HCL 0.4 MG CAPSULE PO SCH (20:00)
[2019-07-27] MEDS: INSULIN GLARGINE,HUM.REC.ANLOG 100 UNITS/ML SQ SCH (20:06)
[2019-07-27 20:38] LABS: GLUCOMETER DEV NAME(LOC) 2WR.2; GLUCOSE,POINT OF CARE 182 MG/DL (70-110)
[2019-07-28 00:14] VITALS: BP 114/51
[2019-07-28] MEDS ORDERED: MULT-1239 PO (04:17)
[2019-07-28] MEDS ORDERED: LANS30TA4 PO (04:17)
[2019-07-28] MEDS ORDERED: TAMS-13 PO (04:17)
[2019-07-28] MEDS ORDERED: INSLAN SQ (04:17)
[2019-07-28] MEDS ORDERED: LIDO700A15 TP (04:17)
[2019-07-28] MEDS ORDERED: METO50 PO (04:17)
[2019-07-28] MEDS ORDERED: SULF1TAB42 PO (04:17)
[2019-07-28] MEDS ORDERED: BETH25TA PO (04:17)
[2019-07-28] MEDS ORDERED: HYDR-2924 PO (04:17)
[2019-07-28] MEDS ORDERED: SENN8.6T90 PO (04:17)
[2019-07-28] MEDS ORDERED: DOCU-342 PO (04:17)
[2019-07-28] MEDS ORDERED: KDUR20 PO (04:17)
[2019-07-28] MEDS ORDERED: SERT50TA12 PO (04:17)
[2019-07-28] MEDS ORDERED: INSU100V SQ (04:18)
[2019-07-28] MEDS: DOCUSATE SODIUM 283 MG/5 ML MINI-ENEMA PR SCH (05:22)
[2019-07-28 05:53] LABS: GLUCOMETER DEV NAME(LOC) 2WR.1C; GLUCOSE,POINT OF CARE 90 MG/DL (70-110)
[2019-07-28 07:21] VITALS: BP 126/69
[2019-07-28] MEDS: POTASSIUM CHLORIDE 20 MEQ ER TABLET PO SCH (08:20)
[2019-07-28] MEDS: DOCUSATE SODIUM 250 MG CAPSULE PO SCH ×2 (08:20→21:27)
[2019-07-28] MEDS: LANSOPRAZOLE 30 MG SOLUBLE TABLET PO SCH (08:20)
[2019-07-28] MEDS: BETHANECHOL CHLORIDE 25 MG TABLET PO SCH ×3 (08:21→21:28)
[2019-07-28] MEDS: SULFAMETHOX/TRIMETH DS 800-160 MG/TABLET PO SCH ×2 (08:21→21:27)
[2019-07-28] MEDS: SERTRALINE HCL 50 MG TABLET PO SCH (08:21)
[2019-07-28] MEDS: HydrALAZINE HCL 50 MG TABLET PO SCH ×3 (08:21→21:40)
[2019-07-28] MEDS: MULTIVITAMINS WITH MINERALS, THERAPEUTIC TABLET PO SCH (08:21)
[2019-07-28] MEDS: AmLODIPine BESYLATE 10 MG TABLET PO SCH (08:21)
[2019-07-28] MEDS: LIDOCAINE 5% TRANSDERMAL PATCH TD SCH (08:22)
[2019-07-28] MEDS: METOPROLOL TARTRATE 50 MG TABLET PO SCH ×2 (08:24→21:27)
[2019-07-28 16:00] VITALS: BP 97/58
[2019-07-28 16:26] LABS: GLUCOMETER DEV NAME(LOC) 2WR.1C; GLUCOSE,POINT OF CARE 135 MG/DL (70-110)
[2019-07-28 17:00] VITALS: BP 143/72
[2019-07-28] MEDS: INSULIN LISPRO 100 UNITS/ML SQ PRN ×2 (17:46→21:37)
[2019-07-28 18:43] LABS: GLUCOMETER DEV NAME(LOC) 2WR.1C; GLUCOSE,POINT OF CARE 209 MG/DL (70-110)
[2019-07-28 21:00] VITALS: BP 131/67
[2019-07-28] MEDS: SENNA 187 MG TABLET PO SCH (21:26)
[2019-07-28] MEDS: -LIDODERM PATCH NOTE- MISC SCH (21:26)
[2019-07-28] MEDS: TAMSULOSIN HCL 0.4 MG CAPSULE PO SCH (21:27)
[2019-07-28] MEDS: ATORVASTATIN CALCIUM 20 MG TABLET PO SCH (21:28)
[2019-07-28] MEDS: INSULIN GLARGINE,HUM.REC.ANLOG 100 UNITS/ML SQ SCH (21:36)
[2019-07-28 23:14] VITALS: BP 120/64
[2019-07-29 05:07] LABS: GLUCOMETER DEV NAME(LOC) 2WR.1C; GLUCOSE,POINT OF CARE 179 MG/DL (70-110)
[2019-07-29] MEDS: DOCUSATE SODIUM 283 MG/5 ML MINI-ENEMA PR SCH (05:07)
[2019-07-29 05:39] LABS: GLUCOMETER DEV NAME(LOC) 2WR.2; GLUCOSE,POINT OF CARE 115 MG/DL (70-110)
[2019-07-29 07:47] LABS: GLUCOMETER DEV NAME(LOC) 2WR.2; GLUCOSE,POINT OF CARE 136 MG/DL (70-110)
[2019-07-29] MEDS: SULFAMETHOX/TRIMETH DS 800-160 MG/TABLET PO SCH ×2 (09:27→21:04)
[2019-07-29] MEDS: BETHANECHOL CHLORIDE 25 MG TABLET PO SCH ×3 (09:27→21:04)
[2019-07-29] MEDS: LANSOPRAZOLE 30 MG SOLUBLE TABLET PO SCH (09:27)
[2019-07-29] MEDS: SERTRALINE HCL 50 MG TABLET PO SCH (09:27)
[2019-07-29] MEDS: AmLODIPine BESYLATE 10 MG TABLET PO SCH (09:27)
[2019-07-29] MEDS: DOCUSATE SODIUM 250 MG CAPSULE PO SCH ×2 (09:27→21:04)
[2019-07-29] MEDS: METOPROLOL TARTRATE 50 MG TABLET PO SCH ×2 (09:27→21:03)
[2019-07-29] MEDS: HydrALAZINE HCL 50 MG TABLET PO SCH ×3 (09:27→21:04)
[2019-07-29] MEDS: POTASSIUM CHLORIDE 20 MEQ ER TABLET PO SCH (09:28)
[2019-07-29] MEDS: MULTIVITAMINS WITH MINERALS, THERAPEUTIC TABLET PO SCH (09:28)
[2019-07-29] MEDS: ONDANSETRON HCL 4 MG TABLET PO PRN (09:28)
[2019-07-29] MEDS: LIDOCAINE 5% TRANSDERMAL PATCH TD SCH (09:29)
[2019-07-29] MEDS: INSULIN LISPRO 100 UNITS/ML SQ PRN ×2 (13:03→21:08)
[2019-07-29 13:27] LABS: GLUCOMETER DEV NAME(LOC) 2WR.1C; GLUCOSE,POINT OF CARE 165 MG/DL (70-110)
[2019-07-29 14:05] VITALS: BP 148/77
[2019-07-29 15:00] VITALS: BP 123/69
[2019-07-29 21:00] VITALS: BP 137/75
[2019-07-29] MEDS: -LIDODERM PATCH NOTE- MISC SCH (21:02)
[2019-07-29] MEDS: TAMSULOSIN HCL 0.4 MG CAPSULE PO SCH (21:03)
[2019-07-29] MEDS: SENNA 187 MG TABLET PO SCH (21:04)
[2019-07-29] MEDS: ATORVASTATIN CALCIUM 20 MG TABLET PO SCH (21:05)
[2019-07-29] MEDS: INSULIN GLARGINE,HUM.REC.ANLOG 100 UNITS/ML SQ SCH (21:06)
[2019-07-29 21:29] LABS: GLUCOMETER DEV NAME(LOC) 2WR.2; GLUCOSE,POINT OF CARE 208 MG/DL (70-110)
[2019-07-29 23:32] VITALS: BP 127/56
[2019-07-30] MEDS: DOCUSATE SODIUM 283 MG/5 ML MINI-ENEMA PR SCH (05:34)
[2019-07-30 05:39] LABS: GLUCOMETER DEV NAME(LOC) 2WR.1C; GLUCOSE,POINT OF CARE 119 MG/DL (70-110)
[2019-07-30 05:57] LABS: GLUCOMETER DEV NAME(LOC) 2WR.1C; GLUCOSE,POINT OF CARE 121 MG/DL (70-110)
[2019-07-30 06:00] VITALS: BP 134/65
[2019-07-30 07:00] VITALS: BP 140/73
[2019-07-30] MEDS: DOCUSATE SODIUM 250 MG CAPSULE PO SCH ×2 (08:34→20:57)
[2019-07-30] MEDS: METOPROLOL TARTRATE 50 MG TABLET PO SCH ×2 (08:34→20:57)
[2019-07-30] MEDS: MULTIVITAMINS WITH MINERALS, THERAPEUTIC TABLET PO SCH (08:35)
[2019-07-30] MEDS: SERTRALINE HCL 50 MG TABLET PO SCH (08:35)
[2019-07-30] MEDS: LANSOPRAZOLE 30 MG SOLUBLE TABLET PO SCH (08:35)
[2019-07-30] MEDS: AmLODIPine BESYLATE 10 MG TABLET PO SCH (08:35)
[2019-07-30] MEDS: SULFAMETHOX/TRIMETH DS 800-160 MG/TABLET PO SCH ×2 (08:35→20:57)
[2019-07-30] MEDS: HydrALAZINE HCL 50 MG TABLET PO SCH ×3 (08:35→20:58)
[2019-07-30] MEDS: POTASSIUM CHLORIDE 20 MEQ ER TABLET PO SCH (08:35)
[2019-07-30] MEDS: BETHANECHOL CHLORIDE 25 MG TABLET PO SCH ×3 (08:35→20:58)
[2019-07-30 12:45] LABS: GLUCOMETER DEV NAME(LOC) 2WR.2; GLUCOSE,POINT OF CARE 171 MG/DL (70-110)
[2019-07-30] MEDS: INSULIN LISPRO 100 UNITS/ML SQ PRN ×2 (13:01→18:17)
[2019-07-30 15:30] VITALS: BP 147/79
[2019-07-30 20:52] VITALS: BP 135/81
[2019-07-30] MEDS: TAMSULOSIN HCL 0.4 MG CAPSULE PO SCH (20:57)
[2019-07-30] MEDS: SENNA 187 MG TABLET PO SCH (20:58)
[2019-07-30] MEDS: ATORVASTATIN CALCIUM 20 MG TABLET PO SCH (20:58)
[2019-07-30] MEDS: INSULIN GLARGINE,HUM.REC.ANLOG 100 UNITS/ML SQ SCH (20:59)
[2019-07-30] MEDS: -LIDODERM PATCH NOTE- MISC SCH (21:00)
[2019-07-30 22:35] LABS: GLUCOMETER DEV NAME(LOC) 2WR.2; GLUCOSE,POINT OF CARE 119 MG/DL (70-110)
[2019-07-31 05:31] LABS: GLUCOMETER DEV NAME(LOC) 2WR.1C; GLUCOSE,POINT OF CARE 158 MG/DL (70-110)
[2019-07-31 05:40] VITALS: BP 133/61
[2019-07-31] MEDS: DOCUSATE SODIUM 283 MG/5 ML MINI-ENEMA PR SCH (06:00)
[2019-07-31 06:03] LABS: GLUCOMETER DEV NAME(LOC) 2WR.1C; GLUCOSE,POINT OF CARE 109 MG/DL (70-110)
[2019-07-31 08:31] VITALS: BP 140/75
[2019-07-31] MEDS: SULFAMETHOX/TRIMETH DS 800-160 MG/TABLET PO SCH ×2 (08:33→21:23)
[2019-07-31] MEDS: DOCUSATE SODIUM 250 MG CAPSULE PO SCH ×2 (08:33→21:21)
[2019-07-31] MEDS: AmLODIPine BESYLATE 10 MG TABLET PO SCH (08:33)
[2019-07-31] MEDS: MULTIVITAMINS WITH MINERALS, THERAPEUTIC TABLET PO SCH (08:33)
[2019-07-31] MEDS: POTASSIUM CHLORIDE 20 MEQ ER TABLET PO SCH (08:33)
[2019-07-31] MEDS: SERTRALINE HCL 50 MG TABLET PO SCH (08:33)
[2019-07-31] MEDS: METOPROLOL TARTRATE 50 MG TABLET PO SCH ×2 (08:34→21:21)
[2019-07-31] MEDS: BETHANECHOL CHLORIDE 25 MG TABLET PO SCH ×3 (08:34→21:21)
[2019-07-31] MEDS: HydrALAZINE HCL 50 MG TABLET PO SCH ×3 (08:34→21:21)
[2019-07-31] MEDS: LANSOPRAZOLE 30 MG SOLUBLE TABLET PO SCH (08:34)
[2019-07-31 13:05] LABS: GLUCOMETER DEV NAME(LOC) 2WR.1C; GLUCOSE,POINT OF CARE 92 MG/DL (70-110)
[2019-07-31 15:20] VITALS: BP 143/84
[2019-07-31 16:40] LABS: GLUCOMETER DEV NAME(LOC) 2WR.1C; GLUCOSE,POINT OF CARE 88 MG/DL (70-110)
[2019-07-31 19:19] LABS: GLUCOMETER DEV NAME(LOC) 2WR.1C; GLUCOSE,POINT OF CARE 159 MG/DL (70-110)
[2019-07-31 21:20] VITALS: BP 137/82
[2019-07-31] MEDS: ATORVASTATIN CALCIUM 20 MG TABLET PO SCH (21:21)
[2019-07-31] MEDS: SENNA 187 MG TABLET PO SCH (21:21)
[2019-07-31] MEDS: -LIDODERM PATCH NOTE- MISC SCH (21:23)
[2019-07-31] MEDS: TAMSULOSIN HCL 0.4 MG CAPSULE PO SCH (21:23)
[2019-07-31] MEDS: INSULIN GLARGINE,HUM.REC.ANLOG 100 UNITS/ML SQ SCH (21:33)
[2019-07-31 21:51] LABS: APPEARANCE,URINE CLOUDY (CLEAR); BILIRUBIN,URINE NEGATIVE (NEGATIVE); GLUCOSE, URINE (UA) NEGATIVE (NEGATIVE); KETONES,URINE NEGATIVE (NEGATIVE); LEUKOCYTE ESTERASE ,URINE SMALL (NEGATIVE); NITRATE,URINE NEGATIVE (NEGATIVE); OCCULT BLOOD,URINE NEGATIVE (NEGATIVE); PROTEIN,URINE POS 1+ (NEGATIVE); UROBILINOGEN,URINE 0.2 mg/dL (<=1.0)
[2019-07-31 22:03] LABS: BACTERIA,URINE Many /HPF (None Seen); RBC,URINE 0-2 /HPF (0-2); SQUAMOUS EPITHELIAL CELL,UR Moderate /LPF (None Seen); WBC,URINE 26-50 /HPF (0-5)
[2019-07-31] MEDS ORDERED: SLOWK8 PO (23:21)
[2019-07-31] MEDS ORDERED: OMEP20 PO (23:21)
[2019-08-01 03:38] VITALS: BP 141/87
[2019-08-01] MEDS: DOCUSATE SODIUM 283 MG/5 ML MINI-ENEMA PR SCH (06:00)
[2019-08-01 06:18] LABS: GLUCOMETER DEV NAME(LOC) 2WR.2; GLUCOSE,POINT OF CARE 108 MG/DL (70-110)
[2019-08-01 07:10] VITALS: BP 137/77
[2019-08-01] MEDS: POTASSIUM CHLORIDE 20 MEQ ER TABLET PO SCH (08:10)
[2019-08-01] MEDS: HydrALAZINE HCL 50 MG TABLET PO SCH (08:10)
[2019-08-01] MEDS: METOPROLOL TARTRATE 50 MG TABLET PO SCH (08:10)
[2019-08-01] MEDS: AmLODIPine BESYLATE 10 MG TABLET PO SCH (08:10)
[2019-08-01] MEDS: SULFAMETHOX/TRIMETH DS 800-160 MG/TABLET PO SCH (08:11)
[2019-08-01] MEDS: LANSOPRAZOLE 30 MG SOLUBLE TABLET PO SCH (08:11)
[2019-08-01] MEDS: MULTIVITAMINS WITH MINERALS, THERAPEUTIC TABLET PO SCH (08:12)
[2019-08-01] MEDS: SERTRALINE HCL 50 MG TABLET PO SCH (08:12)
[2019-08-01] MEDS: DOCUSATE SODIUM 250 MG CAPSULE PO SCH (08:12)
[2019-08-01] MEDS: BETHANECHOL CHLORIDE 25 MG TABLET PO SCH (08:12)
[2019-08-01] MEDS ORDERED: CIPR-279 PO (12:31)
[2019-08-01] MEDS ORDERED: LACT1TAB14 PO (12:32)
[2019-08-01 13:15] LABS: GLUCOMETER DEV NAME(LOC) 2WR.2; GLUCOSE,POINT OF CARE 101 MG/DL (70-110)
[2019-08-01 15:00] VITALS: BP 120/74
== END 2019-08-01 16:25 | disposition home or self-care (01) | DRG 58 ==
LOC: 2WR 11:45 → UNDOADMIN 13:45
PROVIDERS: ATTEND Physical Medicine & Rehabilitation
DX: I69.351 Hemiplegia and hemiparesis following cerebral infarction affecting right dominant side (principal); I61.3 Nontraumatic intracerebral hemorrhage in brain stem; B37.0 Candidal stomatitis; N31.9 Neuromuscular dysfunction of bladder, unspecified; E11.9 Type 2 diabetes mellitus without complications; I10 Essential (primary) hypertension; K59.00 Constipation, unspecified; F32.9 Major depressive disorder, single episode, unspecified; N28.9 Disorder of kidney and ureter, unspecified; E78.5 Hyperlipidemia, unspecified; E66.9 Obesity, unspecified; F10.20 Alcohol dependence, uncomplicated; Y90.9 Presence of alcohol in blood, level not specified; M54.9 Dorsalgia, unspecified; I16.1 Hypertensive emergency; Z68.26 Body mass index [BMI] 26.0-26.9, adult; Z91.19 Patient's noncompliance with other medical treatment and regimen; Z79.899 Other long term (current) drug therapy; Z80.3 Family history of malignant neoplasm of breast; Z28.21 Immunization not carried out because of patient refusal
CPT/HCPCS: 70450; 72100; 74018; 83036; 87081; 87086; 92507; 92508; 92523; 92526; 93005; 97112; 97116; 97150; 97163; 97166; 97530; 97535; 99366; J1815; J3480; J7030; Q0162; Q0167

== ENCOUNTER 2019-08-23 18:12 | Inpatient (IN) | payer MEDICAID ==
[~2019-08-23] VITALS: Ht 170.2 cm; Wt 74.4 kg
[~2019-08-23 18:12] MED LIST changes: -ACET-3207 PO; +BETH25TA PO; -BISA10SU11 PR; +CIPR-279 PO; +DOCU-342 PO; -DSSL PO; +HYDR-2924 PO; +INSLAN SQ; +INSU100V SQ; -INSULIN SQ; +LACT1TAB14 PO; +METO50 PO; +OMEP20 PO; -ONDA4VIA22 IV; -PANT40VI14 IVP; +SERT50TA12 PO; +SLOWK8 PO; +TAMS-13 PO
[2019-08-23 18:26] LABS: BASOPHILS % (AUTO) 0.6 % (0.0-2.0); EOSINOPHILS % (AUTO) 3.9 % (1.0-6.0); HEMATOCRIT 34.1 % (36-46); HEMOGLOBIN 11.6 g/dL (12.0-16.0); LYMPHOCYTES # (AUTO) 2.2 K/uL (1.0-4.8); LYMPHOCYTES % (AUTO) 25.3 % (22.0-44.0); MEAN CORPUSCULAR HEMOGLOBIN 31.7 pg (26.0-34.0); MEAN CORPUSCULAR VOLUME 93 fL (80-100); MONOCYTES # (AUTO) 1.1 K/uL (0.1-1.0); MONOCYTES % (AUTO) 12.8 % (2.0-9.0); NEUTROPHILS # (AUTO) 5.1 K/uL (1.8-7.7); NEUTROPHILS % (AUTO) 57.4 % (40.0-70.0); PLATELET COUNT (AUTO) 338 K/uL (150-450); RED BLOOD CELL COUNT(AUTO) 3.66 MIL/uL (4.00-5.20); RED CELL DISTRIBUTION WIDTH 14.7 % (11.5-14.5)
[2019-08-23] MEDS ORDERED: DEXTROSE 50%-WATER 25 GM/50 ML SYRINGE IVP ONE (18:30)
[2019-08-23 18:40] LABS: PROTHROMBIN TIME 9.9 SEC (9.4-11.6)
[2019-08-23 18:42] LABS: LACTIC ACID 0.9 mmol/L (0.4-2.0)
[2019-08-23 18:45] LABS: ALBUMIN 3.4 g/dL (3.4-5.0); BILIRUBIN,TOTAL 0.1 mg/dL (0.1-1.0); CALCIUM, TOTAL 9.7 mg/dL (8.8-10.5); CREATININE 1.18 mg/dL (0.60-1.30); POTASSIUM 3.2 mmol/L (3.5-5.1); TOTAL PROTEIN, SERUM 8.2 g/dL (6.4-8.2)
[2019-08-23 19:46] LABS: GLUCOSE,POINT OF CARE 79 MG/DL (70-110)
[2019-08-23 21:16] LABS: GLUCOSE,POINT OF CARE 120 MG/DL (70-110)
[2019-08-23 21:16] LABS: GLUCOSE,POINT OF CARE 77 MG/DL (70-110)
[2019-08-23 21:16] LABS: GLUCOSE,POINT OF CARE 85 MG/DL (70-110)
[2019-08-23 21:39] LABS: GLUCOSE,POINT OF CARE 143 MG/DL (70-110)
[2019-08-23 22:13] LABS: GLUCOSE,POINT OF CARE 165 MG/DL (70-110)
[2019-08-23 22:32] VITALS: BP 149/82
[2019-08-23] MEDS ORDERED: MAGNESIUM HYDROXIDE SUSPENSION 30 ML UDCUP PO PRN (23:00)
[2019-08-23] MEDS ORDERED: BISACODYL 10 MG RECTAL RECTAL SUPPOSITORY PR PRN (23:00)
[2019-08-23] MEDS ORDERED: MORPHINE SULFATE 2 MG/ML SYRINGE IVP PRN (23:00)
[2019-08-23] MEDS ORDERED: ZOLPIDEM TARTRATE 5 MG TABLET PO PRN (23:00)
[2019-08-23] MEDS ORDERED: ONDANSETRON HCL 4 MG/2 ML VIAL IVP PRN (23:00)
[2019-08-23] MEDS ORDERED: ATORVASTATIN CALCIUM 20 MG TABLET PO SCH (23:00)
[2019-08-23] MEDS ORDERED: TAMSULOSIN HCL 0.4 MG CAPSULE PO SCH (23:00)
[2019-08-23] MEDS ORDERED: IPRATROPIUM BROMIDE 0.5 MG/2.5 ML NEB SOLUTION NEB PRN (23:00)
[2019-08-23] MEDS ORDERED: ALBUTEROL SULFATE 2.5 MG/0.5 ML NEB SOLUTION NEB PRN (23:00)
[2019-08-23] MEDS ORDERED: ACETAMINOPHEN 325 MG TABLET PO PRN (23:00)
[2019-08-23] MEDS ORDERED: DEXTROSE 50%-WATER 25 GM/50 ML SYRINGE IVP PRN (23:00)
[2019-08-23] MEDS ORDERED: HYDROCODONE/ACETAMINOPHEN 5-325 MG TABLET PO PRN (23:00)
[2019-08-23] MEDS: INSULIN LISPRO 100 UNITS/ML SQ PRN (23:05)
[2019-08-23] MEDS: METOPROLOL TARTRATE 50 MG TABLET PO SCH (23:30)
[2019-08-23] MEDS: HEPARIN SODIUM,PORCINE 5,000 UNITS/ML VIAL SQ SCH (23:30)
[2019-08-24 01:52] LABS: GLUCOMETER DEV NAME(LOC) 5S.1; GLUCOSE,POINT OF CARE 193 MG/DL (70-110)
[2019-08-24 01:54] LABS: APPEARANCE,URINE TURBID (CLEAR); BILIRUBIN,URINE NEGATIVE (NEGATIVE); GLUCOSE, URINE (UA) NEGATIVE (NEGATIVE); KETONES,URINE NEGATIVE (NEGATIVE); LEUKOCYTE ESTERASE ,URINE LARGE (NEGATIVE); NITRATE,URINE NEGATIVE (NEGATIVE); OCCULT BLOOD,URINE TRACE (NEGATIVE); PROTEIN,URINE SEE CONFIRM (NEGATIVE); UROBILINOGEN,URINE 0.2 mg/dL (<=1.0)
[2019-08-24 02:01] LABS: AMPHET/METH SCREEN,URINE NEGATIVE (NEGATIVE); BARBITURATE SCREEN, URINE NEGATIVE (NEGATIVE); BENZODIAZEPINES SCREEN,URINE NEGATIVE (NEGATIVE); CANNABINOID SCREEN,URINE NEGATIVE (NEGATIVE); COCAINE SCREEN,URINE NEGATIVE (NEGATIVE); METHADONE SCREEN, URINE NEGATIVE (NEGATIVE); OPIATE SCREEN,URINE NEGATIVE (NEGATIVE); PHENCYCLIDINE SCREEN,URINE NEGATIVE (NEGATIVE)
[2019-08-24 02:07] LABS: BACTERIA,URINE Moderate /HPF (None Seen); RBC,URINE 0-2 /HPF (0-2); WBC,URINE Full Field /HPF (0-5)
[2019-08-24 02:08] LABS: SQUAMOUS EPITHELIAL CELL,UR None Seen /LPF (None Seen); SULFOSALICYLIC ACID,URINE 1+ (Negative)
[2019-08-24] MEDS ORDERED: INFLUENZA VIRUS VACCINE QVS 2019-20 (3YR+)/PF 60 MCG/0.5 ML SYRINGE IM ONE (03:45)
[2019-08-24 04:50] VITALS: BP 148/79
[2019-08-24] MEDS: INSULIN LISPRO 100 UNITS/ML SQ PRN ×3 (06:42→17:46)
[2019-08-24 07:07] LABS: GLUCOMETER DEV NAME(LOC) 5S.1; GLUCOSE,POINT OF CARE 130 MG/DL (70-110)
[2019-08-24 07:27] LABS: BASOPHILS % (AUTO) 0.6 % (0.0-2.0); EOSINOPHILS % (AUTO) 3.7 % (1.0-6.0); HEMATOCRIT 29.7 % (36-46); HEMOGLOBIN 9.9 g/dL (12.0-16.0); LYMPHOCYTES % (AUTO) 32.6 % (22.0-44.0); MEAN CORPUSCULAR HEMOGLOBIN 31.3 pg (26.0-34.0); MEAN CORPUSCULAR HGB CONC 33.3 G/dL (31.0-37.0); MEAN CORPUSCULAR VOLUME 94 fL (80-100); MONOCYTES # (AUTO) 0.6 K/uL (0.1-1.0); MONOCYTES % (AUTO) 10.4 % (2.0-9.0); NEUTROPHILS # (AUTO) 3.3 K/uL (1.8-7.7); NEUTROPHILS % (AUTO) 52.7 % (40.0-70.0); PLATELET COUNT (AUTO) 292 K/uL (150-450); RED BLOOD CELL COUNT(AUTO) 3.16 MIL/uL (4.00-5.20); RED CELL DISTRIBUTION WIDTH 14.2 % (11.5-14.5)
[2019-08-24 07:33] LABS: HEMOGLOBIN A1C 9.1 % (3.8-5.6)
[2019-08-24 07:43] VITALS: BP 144/69
[2019-08-24 07:51] LABS: ALBUMIN 2.7 g/dL (3.4-5.0); BILIRUBIN,TOTAL 0.1 mg/dL (0.1-1.0); CALCIUM, TOTAL 9.1 mg/dL (8.8-10.5); CREATININE 1.11 mg/dL (0.60-1.30); POTASSIUM 3.4 mmol/L (3.5-5.1); TOTAL PROTEIN, SERUM 6.8 g/dL (6.4-8.2)
[2019-08-24] MEDS ORDERED: OMEPRAZOLE 20 MG CAPSULE PO SCH (09:00)
[2019-08-24] MEDS ORDERED: SERTRALINE HCL 50 MG TABLET PO SCH (09:00)
[2019-08-24] MEDS ORDERED: DOCUSATE SODIUM 100 MG CAPSULE PO SCH (09:00)
[2019-08-24] MEDS ORDERED: AmLODIPine BESYLATE 10 MG TABLET PO SCH (09:00)
[2019-08-24] MEDS: HEPARIN SODIUM,PORCINE 5,000 UNITS/ML VIAL SQ SCH ×2 (09:26→15:54)
[2019-08-24] MEDS: BETHANECHOL CHLORIDE 25 MG TABLET PO SCH ×2 (09:27→15:54)
[2019-08-24] MEDS: METOPROLOL TARTRATE 50 MG TABLET PO SCH (09:28)
[2019-08-24] MEDS: HydrALAZINE HCL 50 MG TABLET PO SCH ×2 (09:28→15:53)
[2019-08-24 11:39] VITALS: BP 138/67
[2019-08-24 12:11] LABS: GLUCOMETER DEV NAME(LOC) 5N.1; GLUCOSE,POINT OF CARE 162 MG/DL (70-110)
[2019-08-24] MEDS ORDERED: POTASSIUM CHLORIDE 20 MEQ ER TABLET PO ONE (14:00)
[2019-08-24 16:03] VITALS: BP 134/71
[2019-08-24 19:38] LABS: GLUCOMETER DEV NAME(LOC) 5S.1; GLUCOSE,POINT OF CARE 190 MG/DL (70-110)
== END 2019-08-24 20:42 | disposition home or self-care (01) | DRG 420 ==
LOC: EMS 18:14 → 5N 21:00
PROVIDERS: ADMIT Hospitalist; ATTEND Hospitalist
DX: E11.649 Type 2 diabetes mellitus with hypoglycemia without coma (principal); G92 Toxic encephalopathy; I10 Essential (primary) hypertension; E78.5 Hyperlipidemia, unspecified; I25.10 Atherosclerotic heart disease of native coronary artery without angina pectoris; Z99.3 Dependence on wheelchair
CPT/HCPCS: 51702; 70450; 82948; 83036; 83605; 87040; 87081; 87086; 93005; 99291; J1644